=== PATIENT | male | born 1960 | race Caucasian/White ===

== ENCOUNTER 2016-10-26 13:38 | Emergency (ER) | payer OTHER ==
--- NOTE | ~2016-10-26 | CR63 ---
[facility]. [facility] A Service of [facility] RADIOLOGY TEXT RESULTS PATIENT: HEAVEN PAZ LOCATION: SED : 58 UNIT #: [id number] AGE: [address]: Megan Alarcon SEX: M ORDER DR: [id number] [place] [address] [id number] E MR#: [id number] Acc #: [id number] NAME: HEAVEN PAZ. : 1960 SEX: M STUDY DATE/TIME: 10/26/2016 13:59 UNIT: SED ROOM: STUDY DESCRIPTION: CR Chest 2 View Attending Physician: Megan Alarcon P.A.-C. Ordering Physician: Megan Alarcon P.A.-C. Primary Care Physician: Toni Madison M.D. MEDICAL IMAGING REPORT This report is preliminary unless electronic signature is present. EXAM 2 views chest 10/26/2016 HISTORY Cough. Productive cough for 2 days. Prior history of prostate cancer. PA and lateral radiographs of the chest are presented. Comparison 04/05/2016. Loop recorder implanted over left chest unchanged. Status post median sternotomy and aortic valve replacement. Heart borderline enlarged. The lungs are well inflated. There is no evidence of acute infectious or inflammatory disease, pleural effusion or pneumothorax. No suspicious nodule. Dictated by... Van Cox M.D. THIS IS AN ELECTRONICALLY VERIFIED REPORT Van Cox M.D. at 10/27/2016 5:57 PM Kin TD: 10/26/2016 17:57 JOB #: [id number] MEDICAL IMAGING REPORT Page 1 of 1
[~2016-10-26 13:38] MED LIST: ACETAMINOPHEN PO; ADVAIR 2501 DISK W/D PO; ADVAIR 5001 DISK W/D PO; ALBUTEROL 0.5ML INH; ALBUTEROL MININEB INH; ALBUTEROL MININEB NEB; ALBUTEROL/ATROVENT INH; ALBUTEROL0.83 MG/ML IH; ALBUTEROL17 GM INH; ALPRAZOLAM; ALPRAZOLAM PO; AMBIEN PO; ASPIRIN PO; ASPIRINEC PO; BACTROBAN22 GM TP; BENADRYL PO; BENTYL20 M1 PO; BENZONATATE PO; CARAFATE PO; CELEXA20 MG PO; CIPRO PO; CLARITIN10 M3 PO; CLEOCIN PO; COLACE PO; COMBIVENT INH14.7 GM INH; COMBIVENT U/D3 M1 INH; COUMADIN; COUMADIN PO; COUMADIN10 MG PO; COUMADIN7.5 MG PO; DESYREL50 MG PO; DILAUDID PO; DOCU SOFT100 M1 PO; DOXYCYCLINE PO; DULCOLAX10 MG/SUPP RC; FAMOTIDINE; FAMOTIDINE PO; FLAGYL PO; FLEXERIL PO; FLEXERIL10 MG PO; FLONASE16 GM; HUMIBID-LA600 MG PO; HYDROCHLOROTH12.5 MG PO; HYDROCODON-ACE1 EAC7 PO; HYDROCODON-ACE1 EAC9 PO; HYDROCODONE-APA1 T56 PO; IBUPROFEN PO; INDOCIN SR75 MG PO; IPRATROPIUM0.2 MG/ML NEB; K-DUR20 ME1 PO; KCL; KCL PO; KLOR-CON; LEVAQUIN PO; LISINOPRIL; LISINOPRIL PO; LISINOPRIL10 MG PO; LISINOPRIL5 MG PO; LOC PO; LORTAB 10-5001 EACH PO; LORTAB 10/500 T1 TAB PO; LORTAB 5-325 M1 EACH PO; LORTAB 7.5-5001 TAB; LORTAB 7.5-5001 TAB PO; LOVENOX SUBQ; LOVENOX100 MG/ML INJ; LYRICA75 MG PO; MACROBID100 MG PO; MEDROL DOSEPAK4 MG PO; MEDROL PO; MEDROL4 MG/DOSE- PO; MEPHYTON5 M1 PO; METAMUCIL0.52 G; MICRO-K PO; MILK OF MAGNESIA PO; MIRALAX PO; MIRALAX17 G1 PO; MIRALAX17 GM PO; MIRALAX255 GM PO; MONDOXYNE NL100 MG PO; MOTRIN600 M1 PO; MYLANTA GAS80 M1 PO; NABUMETONE PO; NEURONTIN PO; NEURONTIN300 MG PO; NICOTINE TRANSD21 MG TD; NITROGYLCERIN SL; NITROGYLCERIN SUBLINGUAL; NO MEDICATIONS; PATIENT'S PHARMACY; PERCOCET 5-3251 TAB PO; PERCOCET 7.5/321 TAB PO; PHENERGAN PO; PHENERGAN25 MG PO; PREDNISONE PO; PREDNISONE10 MG PO; PRINIVIL40 MG PO; PROTONIX PO; PULMICORT NEB; REGLAN PO; SIMVASTATIN40 MG PO; SINGULAIR PO; SKELAXIN PO; SPIRIVA18 MCG INH; SYMBICORT INH; THIAMINE HCL100 MG PO; TYLOX 5/500 CAP1 CAP PO; ULTRAM PO; VIBRAMYCIN100 M1 PO; VICODIN 5/1 TAB 5/50 PO; VICODIN 5/500 T1 TAB PO; VICODIN PO; XANAX0.5 M1 PO; ZESTRIL40 MG PO; ZITHROMAX PO; ZOCOR PO; ZOCOR20 MG PO; ZOLPIDEM TARTRAT5 MG PO; ZYVOX PO
== END 2016-10-26 15:22 | disposition home or self-care (01) ==
LOC: SED 13:38
DX: J20.9 Acute bronchitis, unspecified (principal); I10 Essential (primary) hypertension; J18.9 Pneumonia, unspecified organism; K57.92 Diverticulitis of intestine, part unspecified, without perforation or abscess without bleeding; Z86.73 Personal history of transient ischemic attack (TIA), and cerebral infarction without residual deficits; F17.200 Nicotine dependence, unspecified, uncomplicated
CPT/HCPCS: 71020; 94640; 99284

== ENCOUNTER 2016-12-22 02:30 | Emergency (ER) | payer OTHER ==
[~2016-12-22] VITALS: Ht 175.3 cm; Wt 85.7 kg
[2016-12-22] MEDS ORDERED: VICODIN ES 7.51 EAC1 PO (02:40)
== END 2016-12-22 03:24 | disposition home or self-care (01) ==
LOC: SED 02:30
DX: S05.01XA Injury of conjunctiva and corneal abrasion without foreign body, right eye, initial encounter (principal); J44.9 Chronic obstructive pulmonary disease, unspecified; F41.9 Anxiety disorder, unspecified; F17.200 Nicotine dependence, unspecified, uncomplicated; Z88.8 Allergy status to other drugs, medicaments and biological substances; Z79.899 Other long term (current) drug therapy; X58.XXXA Exposure to other specified factors, initial encounter
CPT/HCPCS: 99283

== ENCOUNTER 2017-01-08 11:56 | Inpatient (IN) | payer OTHER ==
[~2017-01-08] VITALS: Ht 175.3 cm; Wt 91.8 kg
--- NOTE | ~2017-01-08 | US37 ---
[facility] A Service of [facility] RADIOLOGY TEXT RESULTS PATIENT: HEAVEN PAZ LOCATION: [facility] 322- : 58 UNIT #: [id number] AGE: [address]: Bernie Garcia MD SEX: M ORDER DR: [id number] [facility] [address] [place], [place] [address] [id number] I MR#: [id number] Acc #: [id number] NAME: HEAVEN PAZ. : 1960 SEX: M STUDY DATE/TIME: 01/09/2017 14:10 UNIT: [address] ROOM: [facility] STUDY DESCRIPTION: US Carotid W/Doppler Bilateral Attending Physician: Bernie Garcia M.D. Ordering Physician: Bernie Garcia M.D. Primary Care Physician: Toni Madison M.D. MEDICAL IMAGING REPORT This report is preliminary unless electronic signature is present EXAM Carotid Doppler ultrasound HISTORY Fainting. Stroke. Patient fell 2 days ago. FINDINGS The carotid bifurcations and vertebral arteries were evaluated with banks-scale imaging, color flow Doppler and waveform analysis. NASCET criteria was utilized. There is minimal plaque in the bulb regions bilaterally. Peak systolic flow in the right CCA is 0.98 m/sec, right ICA it is 0.87 m/sec. Peak systolic flow in the left CCA is 0.93 m/sec, left ICA it is 0.84 m/sec. Both vertebral arteries have antegrade flow. IMPRESSION No evidence of significant carotid stenosis. Normal vertebral artery flow. Dictated by... Mahamed Fernando M.D. THIS IS AN ELECTRONICALLY VERIFIED REPORT Mahamed Fernando M.D. at 01/10/2017 6:04 AM ROEL/keyla TD: 01/10/2017 00:20 JOB #: [id number] MEDICAL IMAGING REPORT Page 1 of 1 COPY
--- NOTE | ~2017-01-08 | DS ---
Unit #: [id number] #: [id number] Patient: JOSÉ LOVE [id number] [address] [address] [id number] I MR#: [id number] NAME: JOSÉ LOVE. ROOM: 322 Age: 56 Sex: M Admission Date: 01/08/2017 : 1960 Discharge Date: 01/12/2017 Attending Physician: Bernie Garcia M.D. Primary Care Physician: Toni Madison M.D. DISCHARGE SUMMARY FINAL DIAGNOSES 1. Lower gastrointestinal bleed. 2. Status post colonoscopy, which showed prep was poor. No acute active bleeding. Diverticulosis is present. Large internal hemorrhoid is present. 3. Mechanical aortic valve on heparin in the hospital. 4. Chronic obstructive pulmonary disease. 5. Cerebrovascular accident. 6. Peripheral vascular disease. 7. Seizures. 8. Chronic pain. DISCHARGE MEDICATIONS 1. Lovenox 80 mg subcu b.i.d. 2. Protonix 40 mg b.i.d. 3. Potassium 20 mEq daily. 4. Vitamin D. Continue home dose. 5. Fenofibrate 145 mg daily. 6. Diovan 320 mg daily. 7. Allopurinol 100 mg daily. 8. Singulair 10 mg daily. 9. Aspirin 325 mg daily. 10. Lorcet. Continue home dose. 11. Magnesium oxide 800 mg daily. 12. Coumadin 7.5 mg daily. 13. Wellbutrin 150 mg daily. 14. Atorvastatin 80 mg at bedtime. Please note Norvasc was discontinued in the hospital because of hypotension. That may need to be resumed. CONSULTATION DURING HOSPITALIZATION Dr. Salazar from [facility]. PROCEDURE PERFORMED DURING HOSPITALIZATION Colonoscopy. Results are as above. LAB WORKUP ON DISCHARGE PT and INR are 11.4 and 1.1. CBC shows WBC 9.9, hemoglobin 12.2, hematocrit 35.4 and platelet count of 254. Sodium 139, potassium 4.4, chloride 107, BUN 8, creatinine 0.8. Liver enzymes are stable. Blood cultures were negative. BNP 35 on admission. SIGNIFICANT IMAGING STUDIES DONE IN THE HOSPITAL Unit #: [id number] #: [id number] Patient: JOSÉ LOVE 1. CT scan of the soft tissue of the neck because the patient complained of pain which was normal. 2. CT scan of the abdomen and pelvis, which was normal. There was hepatomegaly. 3. Ultrasound of carotid arteries. No significant stenosis. 4. Knee x-ray showed no acute bone finding. 5. Left ankle x-ray which showed no acute fracture. HOSPITAL COURSE Mr. José Love is a 56-year-old male who was admitted to the hospital with rectal bleeding. Dr. Salazar was consulted. The patient was taken off Coumadin and had a colonoscopy done. Findings are as above. Most likely, this bleeding was secondary to internal hemorrhoids. The patient is being restarted on anticoagulation therapy. The patient will be discharged home on Lovenox 80 mg subcu b.i.d. with Coumadin. The patient will receive Coumadin 10 mg today. The patient will get PT and INR done at Dr. Fatima's office. The patient had a fall before coming to hospital. He complained of neck pain and left lower extremity pain. X-rays were done which were stable. The patient's pain has improved. DISCHARGE INSTRUCTIONS 1. The patient is being discharged home in stable condition. 2. Discontinue Lovenox once INR is more than 2.5. 3. Coumadin 10 mg will be given today. PT and INR in the a.m. in Dr. Callahan's office. 4. Follow up with primary care provider in one week. Dictated by... Joana Sierra TD: 01/13/2017 11:31 JOB #: [id number] DISCHARGE SUMMARY Page 1 of 1 X Bernie Garcia MD X DISCHARGE SUMMARY
--- NOTE | ~2017-01-08 | CT2 ---
[facility] A Service of [facility] RADIOLOGY TEXT RESULTS PATIENT: HEAVEN PAZ LOCATION: [facility] 322-01 : 58 UNIT #: [id number] AGE: [address]: Bernie Garcia MD SEX: M ORDER DR: [id number] [facility] [address] [place], [place] [address] [id number] E MR#: [id number] Acc #: [id number] NAME: HEAVEN PAZ. : 1960 SEX: M STUDY DATE/TIME: 01/08/2017 14:13 UNIT: [place] ROOM: STUDY DESCRIPTION: CT Abd and Pelv W Cont Attending Physician: Megan Freeman M.D. Ordering Physician: Megan Freeman M.D. Primary Care Physician: Toni Madison M.D. MEDICAL IMAGING REPORT This report is preliminary unless electronic signature is present EXAM CT abdomen and pelvis with contrast INDICATIONS Bloody stools. Left lower quadrant abdominal pain for the past 3 days. PROCEDURE Contrast-enhanced CT of the abdomen and pelvis. This CT exam was performed with one or more of the following radiation dose reduction techniques: Automatic exposure control, adjustment of mA and/or kV according to patient size, and iterative reconstruction. COMPARISON 10/09/2014 FINDINGS Included lung bases are clear. Liver enlarged measuring 21.9 cm. The spleen, adrenal glands, pancreas are unremarkable. Previous cholecystectomy. 1.7-cm cyst in the right kidney. Small nonobstructing calculi in the right kidney. Bowel loops are nondilated. There is postsurgical change in the sigmoid colon. PELVIS WITHOUT CONTRAST: Prostate measures 5.2 cm. No pelvic mass or fluid. No aggressive appearing bone lesion. IMPRESSION 1. No clearly acute finding. 2. Hepatomegaly. Right renal cyst and small nonobstructing right renal calculi. 3. Prostatomegaly. [facility] A Service of [facility] RADIOLOGY TEXT RESULTS PATIENT: HEAVEN PAZ LOCATION: [facility] 322- : 58 UNIT #: [id number] AGE: [address]: Bernie Garcia MD SEX: M ORDER DR: Dictated by... Dimitri Jay M.D. THIS IS AN ELECTRONICALLY VERIFIED REPORT Dimitri Jay M.D. at 01/09/2017 8:17 AM EED/psc TD: 01/08/2017 16:20 JOB #: [id number] MEDICAL IMAGING REPORT Page 1 of 1 COPY
--- NOTE | ~2017-01-08 | CT114 ---
[facility] A Service of [facility] RADIOLOGY TEXT RESULTS PATIENT: HEAVEN PAZ LOCATION: A 322-01 : 58 UNIT #: [id number] AGE: [address]: Bernie Garcia MD SEX: M ORDER DR: [id number] [facility] [address] [place] [address] [place], [place] [address] [id number] E MR#: [id number] Acc #: [id number] NAME: HEAVEN PAZ. : 1960 SEX: M STUDY DATE/TIME: 01/08/2017 14:13 UNIT: [facility] ROOM: STUDY DESCRIPTION: CT Soft Tissue Neck W Cont Attending Physician: Megan Freeman M.D. Ordering Physician: Megan Freeman M.D. Primary Care Physician: Toni Madison M.D. MEDICAL IMAGING REPORT This report is preliminary unless electronic signature is present EXAM CT neck with contrast HISTORY Left-sided neck pain and swelling for 3 days. History of COPD. Prostate cancer 2016. FINDINGS Axial images performed through the neck following IV contrast. This CT exam was performed with one or more of the following radiation dose reduction techniques: Automatic exposure control, adjustment of mA and/or kV according to patient size, and iterative reconstruction. Multiplanar reconstructions. Scanning was performed from the skull base to the arsen. The parotid, submandibular and thyroid glands are unremarkable. There are a few benign-appearing anterior cervical lymph nodes. Anatomic spaces within the head and neck appear normal. Skull base unremarkable. Minimal atherosclerotic changes seen within the carotids bilaterally. There is C5-6 degenerative disc disease with a posterior disc protrusion and osteophyte with a left paracentral predominance. This contributes to mild spinal stenosis and moderate lateral recess stenosis. Upper thorax remarkable for emphysema. Patient is also post median sternotomy. Patient does demonstrate a large left susan bullosa. The patient does demonstrate a small left submandibular lymph node that does not appear pathologically enlarged. IMPRESSION No acute head/neck pathology. Correlate with physical findings. Dictated by... [facility] A Service of [facility] RADIOLOGY TEXT RESULTS PATIENT: HEAVEN PAZ LOCATION: [facility] 322-01 : 58 UNIT #: [id number] AGE: [address]: Bernie Garcia MD SEX: M ORDER DR: Alvin Morris M.D. THIS IS AN ELECTRONICALLY VERIFIED REPORT Alvin Morris M.D. at 01/08/2017 10:02 PM EDGAR/nando TD: 01/08/2017 16:15 JOB #: [id number] MEDICAL IMAGING REPORT Page 1 of 1 COPY
--- NOTE | ~2017-01-08 | OR ---
Unit #: [id number] #: [id number] Patient: HEAVEN PAZ [id number] [address] [address] [id number] I MR#: [id number] NAME: HEAVEN PAZ. ROOM: [facility] Date of Procedure: 01/11/2017 Admission Date: 01/08/2017 Surgeon: Austin Salazar M.D. : 1960 Attending Physician: Bernie Garcia M.D. Primary Care Physician: Toni Madison M.D. OPERATIVE REPORT JOB NOTE: CC: PRIMARY CARE PHYSICIAN PROCEDURE PERFORMED Colonoscopy to cecum. INDICATIONS FOR PROCEDURE The patient with significant lower GI bleeding, anemia secondary of blood loss. MEDICATIONS Monitored anesthesia. POSTOPERATIVE FINDINGS 1. Colonoscopy completed to cecum. Prep was poor. No active bleeding or any stigmata of recent bleeding was seen in the entire colon. 2. Anastomosis in the sigmoid colon was intact. 3. Large internal hemorrhoids, most likely the cause of bleeding. PLAN High fiber diet. Stool softeners. Watch for any continued bleeding. DESCRIPTION OF PROCEDURE The patient was explained of the procedure, risks, and benefits along with risks and benefits of anesthesia. She was brought to the endoscopy room. Propofol anesthesia was given. Rectal exam was done, which was normal. Colonoscope was lubricated, passed up the rectum, advanced under direct vision all the way to the cecum. Cecum was identified by ileocecal valve and appendiceal orifice. Poor prep lead to suboptimal exam, polyp could have been missed. I retroflexed in the rectum, internal hemorrhoids noted. Gently, the scope was pulled out. She tolerated it well. Dictated by... Joana Ash/alberta TD: 01/11/2017 16:25 JOB #: [id number] Unit #: [id number] #: [id number] Patient: HEAVEN PAZ OPERATIVE REPORT Page 1 of 1 X Austin Salazar MD PROCEDURE OPERATIVE NOTE
--- NOTE | ~2017-01-08 | CR169 ---
[facility] A Service [facility] RADIOLOGY TEXT RESULTS PATIENT: HEAVEN PAZ LOCATION: [facility] 322 : 58 UNIT #: [id number] AGE: [address]: Bernie Garcia MD SEX: M ORDER DR: [id number] [address] [address] [id number] E MR#: [id number] Acc #: [id number] NAME: HEAVEN PAZ. : 1960 SEX: M STUDY DATE/TIME: 01/08/2017 12:37 UNIT: [place] ROOM: STUDY DESCRIPTION: CR Knee 2 Views Lt Attending Physician: Megan Freeman M.D. Ordering Physician: Megan Freeman M.D. Primary Care Physician: Toni Madison M.D. MEDICAL IMAGING REPORT This report is preliminary unless electronic signature is present EXAM Left knee series INDICATION Left knee pain after a fall today. PROCEDURE Two views left knee COMPARISON None. FINDINGS No acute fracture or dislocation. There is a trace joint effusion. There is a small curvilinear radiodense foreign body projecting in the soft tissues along the anteromedial distal left thigh. IMPRESSION 1. No acute bone findings. 2. Trace joint effusion. 3. Small curvilinear radiodense foreign body soft tissues in the anteromedial distal left thigh. Dictated by... Dimitri Jay M.D. THIS IS AN ELECTRONICALLY VERIFIED REPORT Dimitri Jay M.D. at 01/09/2017 8:15 AM ANTHONY/tanner TD: 01/08/2017 13:50 [facility] A Service [facility] RADIOLOGY TEXT RESULTS PATIENT: HEAVEN PAZ LOCATION: [facility] 322-01 : 58 UNIT #: [id number] AGE: [address]: Bernie Garcia MD SEX: M ORDER DR: JOB #: [id number] MEDICAL IMAGING REPORT Page 1 of 1 COPY
--- NOTE | ~2017-01-08 | EKG ---
PATIENT: HEAVEN PAZ UNIT #: [id number] Ventricular Rate: 78 BPM Atrial Rate: 78 BPM P-R Interval: 162 ms QRS Duration: 146 ms Q-T Interval: 432 ms QTC Calculation(Bezet): 492 ms P [place]: 51 degrees Calculated R [place]: -89 degrees Calculated T [place]: 23 degrees Diagnosis Line: Atrial flutter Diagnosis Line: Right bundle branch block Diagnosis Line: Left anterior fascicular block Diagnosis Line: Bifascicular block Diagnosis Line: T wave abnormality, consider lateral ischemia Diagnosis Line: Abnormal ECG Diagnosis Line: When compared with ECG of 20-MAY-2015 17:52, Diagnosis Line: T wave inversion more evident in Anterolateral Diagnosis Line: leads Diagnosis Line: Atrial flutter is now Present Diagnosis Line: Confirmed by SALINA BURRELL MD ([id number]) on 01/10/2017 Diagnosis Line: 10:51:58 PM INTERPRETING MD: INDRA ADAMS
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
--- NOTE | ~2017-01-08 | CR20 ---
[facility] A Service of [facility] RADIOLOGY TEXT RESULTS PATIENT: HEAVEN APZ LOCATION: [facility] 322-01 : 58 UNIT #: [id number] AGE: [address]: Bernie Garcia MD SEX: M ORDER DR: [id number] [facility] [address] [facility]. [place], [place] [address] [id number] E MR#: [id number] Acc #: [id number] NAME: HEAVEN PAZ. : 1960 SEX: M STUDY DATE/TIME: 01/08/2017 12:35 UNIT: [place] ROOM: STUDY DESCRIPTION: CR Ankle Min 3 Views Lt Attending Physician: Megan Freeman M.D. Ordering Physician: Megan Freeman M.D. Primary Care Physician: Toni Madison M.D. MEDICAL IMAGING REPORT This report is preliminary unless electronic signature is present EXAM Left ankle series INDICATION Left knee and ankle pain after a fall today. PROCEDURE Three views left ankle. COMPARISON None. FINDINGS No acute fracture. No dislocation. IMPRESSION No acute findings. Dictated by... Dimitri Jay M.D. THIS IS AN ELECTRONICALLY VERIFIED REPORT Dimitri Jay M.D. at 01/09/2017 8:15 AM ANTHONY/tanner TD: 01/08/2017 13:49 JOB #: [id number] MEDICAL IMAGING REPORT Page 1 of 1 COPY
[~2017-01-08 11:56] MED LIST changes: +VICODIN ES 7.51 EAC1 PO
[2017-01-08 12:45] LABS: BASOPHIL# 0.1 X10e3 (0-0.3); BASOPHIL% 0.9 % (0-2.5); DIFF IND NO; EOSINOPHIL# 0.2 X10e3 (0-0.7); EOSINOPHIL% 2.9 % (0.0-7.0); HEMATOCRIT 38.1 % (38.0-50.0); HEMOGLOBIN 13.2 gm/dL (13.0-16.0); LYMPHOCYTE# 1.7 X10e3 (1.0-3.5); LYMPHOCYTE% 21.8 % (17.0-45.0); MEAN CORPUSCULAR HEMOGLOBIN 31.2 PG (28-34); MEAN CORPUSCULAR HGB CONC 34.6 g/dL (30-36); MEAN PLATELET VOLUME 7.9 FL (6.5-11.5); MONOCYTE# 0.6 X10e3 (0-1.0); MONOCYTE% 8.3 % (3.0-12.0); NEUTROPHIL# 5.1 X10e3 (1.5-7.1); NEUTROPHIL% 66.1 % (40-75); PLATELET COUNT 274 X10e3 (140-420); RED BLOOD COUNT 4.23 X10e (3.90-5.60); RED CELL DISTRIBUTION WIDTH 14.5 % (11.0-15.5); WHITE BLOOD COUNT 7.6 X10e3 (4.0-10.5)
[2017-01-08 12:56] LABS: PARTIAL THROMBOPLASTIN TIME 41.4 SECONDS (23.5-31.3); PROTHROMBIN TIME (PATIENT) 33.1 SECONDS (10.0-11.7)
[2017-01-08 13:39] LABS: ALBUMIN SERUM 3.6 g/dL (3.5-5.0); BILIRUBIN,TOTAL 0.5 mg/dL (0.2-2.0); BUN/CREATININE RATIO 11.11; CALCIUM SERUM 8.7 mg/dL (8.4-10.2); CREATININE SERUM 0.9 mg/dL (0.6-1.4); GLOM FILT RATE Estimated 94.5 mL/min (>60)
[2017-01-08 13:40] LABS: BILIRUBIN,INDIRECT 0.5 mg/dL (0.0-0.9)
[2017-01-08 15:06] LABS: POC - CKMB 1.9 ng/mL (0.0-7.9); POC - TROPONIN <0.05 ng/mL (<=0.05)
[2017-01-08] MEDS ORDERED: ZYLOPRIM100 MG PO (15:10)
[2017-01-08] MEDS ORDERED: WELLBUTRIN SR150 M1 PO (15:11)
[2017-01-08] MEDS ORDERED: ASPIRIN ENTERI325 M1 PO (15:11)
[2017-01-08] MEDS ORDERED: ATORVASTATIN CA80 MG PO (15:11)
[2017-01-08] MEDS ORDERED: AMLODIPINE BESY10 MG PO (15:11)
[2017-01-08] MEDS ORDERED: ZYRTEC10 M2 PO (15:12)
[2017-01-08] MEDS ORDERED: LORCET PLUS 7.1 EACH PO (15:13)
[2017-01-08] MEDS ORDERED: FENOFIBRATE145 M1 PO (15:13)
[2017-01-08] MEDS ORDERED: PROTONIX PO (15:14)
[2017-01-08] MEDS ORDERED: SINGULAIR PO (15:14)
[2017-01-08] MEDS ORDERED: DIOVAN320 MG PO (15:14)
[2017-01-08] MEDS ORDERED: K-DUR20 ME1 PO (15:14)
[2017-01-08] MEDS ORDERED: MAG-OX 400400 M1 PO (15:14)
[2017-01-08] MEDS ORDERED: WARFARIN SODIU7.5 M1 PO (15:15)
[2017-01-08] MEDS ORDERED: VITAMIN D250000 UNIT PO (15:15)
[2017-01-09 05:16] LABS: BASOPHIL# 0.1 X10e3 (0-0.3); EOSINOPHIL# 0.3 X10e3 (0-0.7); EOSINOPHIL% 3.7 % (0.0-7.0); HEMATOCRIT 36.2 % (38.0-50.0); HEMOGLOBIN 12.5 gm/dL (13.0-16.0); LYMPHOCYTE# 2.7 X10e3 (1.0-3.5); LYMPHOCYTE% 32.9 % (17.0-45.0); MEAN CORPUSCULAR HEMOGLOBIN 31.5 PG (28-34); MEAN CORPUSCULAR HGB CONC 34.6 g/dL (30-36); MONOCYTE# 0.6 X10e3 (0-1.0); MONOCYTE% 7.9 % (3.0-12.0); NEUTROPHIL# 4.5 X10e3 (1.5-7.1); NEUTROPHIL% 54.5 % (40-75); PLATELET COUNT 225 X10e3 (140-420); RED BLOOD COUNT 3.98 X10e (3.90-5.60); RED CELL DISTRIBUTION WIDTH 14.8 % (11.0-15.5); WHITE BLOOD COUNT 8.2 X10e3 (4.0-10.5)
[2017-01-09 05:32] LABS: DIFF IND NO
[2017-01-09 05:43] LABS: INR 3.3; PROTHROMBIN TIME (PATIENT) 36.1 SECONDS (10.0-11.7)
[2017-01-10 05:36] LABS: HEMATOCRIT 34.3 % (38.0-50.0); HEMOGLOBIN 11.5 gm/dL (13.0-16.0); MEAN CELL VOLUME 90.5 FL (83-96); MEAN CORPUSCULAR HEMOGLOBIN 30.4 PG (28-34); MEAN CORPUSCULAR HGB CONC 33.5 g/dL (30-36); MEAN PLATELET VOLUME 7.4 FL (6.5-11.5); RED BLOOD COUNT 3.79 X10e (3.90-5.60); RED CELL DISTRIBUTION WIDTH 14.5 % (11.0-15.5); WHITE BLOOD COUNT 11.3 X10e3 (4.0-10.5)
[2017-01-10 06:20] LABS: ALBUMIN SERUM 3.5 g/dL (3.5-5.0); BILIRUBIN,TOTAL 1.1 mg/dL (0.2-2.0); BUN/CREATININE RATIO 8.18; CALCIUM SERUM 8.6 mg/dL (8.4-10.2); CREATININE SERUM 1.1 mg/dL (0.6-1.4); GLOM FILT RATE Estimated 74.1 mL/min (>60); POTASSIUM 4.2 mmol/L (3.5-5.1)
[2017-01-10 07:09] LABS: INR 1.3
[2017-01-11 02:03] LABS: HEMOGLOBIN 11.2 gm/dL (13.0-16.0); MEAN CELL VOLUME 90.9 FL (83-96); MEAN CORPUSCULAR HEMOGLOBIN 30.7 PG (28-34); MEAN CORPUSCULAR HGB CONC 33.8 g/dL (30-36); MEAN PLATELET VOLUME 7.5 FL (6.5-11.5); RED BLOOD COUNT 3.63 X10e (3.90-5.60); RED CELL DISTRIBUTION WIDTH 14.6 % (11.0-15.5); WHITE BLOOD COUNT 8.8 X10e3 (4.0-10.5)
[2017-01-11 02:17] LABS: INR 1.2; PARTIAL THROMBOPLASTIN TIME 34.8 SECONDS (23.5-31.3); PROTHROMBIN TIME (PATIENT) 12.6 SECONDS (10.0-11.7)
[2017-01-11 02:26] LABS: ALBUMIN SERUM 3.5 g/dL (3.5-5.0); BILIRUBIN,TOTAL 0.9 mg/dL (0.2-2.0); CALCIUM SERUM 8.6 mg/dL (8.4-10.2); CREATININE SERUM 0.8 mg/dL (0.6-1.4); GLOM FILT RATE Estimated 99.2 mL/min (>60); POTASSIUM 4.4 mmol/L (3.5-5.1); PROTEIN TOTAL SERUM 5.9 g/dL (6.0-8.3)
[2017-01-11 17:36] LABS: HEMATOCRIT 35.4 % (38.0-50.0); HEMOGLOBIN 12.2 gm/dL (13.0-16.0); MEAN CELL VOLUME 90.5 FL (83-96); MEAN CORPUSCULAR HEMOGLOBIN 31.1 PG (28-34); MEAN CORPUSCULAR HGB CONC 34.3 g/dL (30-36); MEAN PLATELET VOLUME 7.7 FL (6.5-11.5); RED BLOOD COUNT 3.91 X10e (3.90-5.60); RED CELL DISTRIBUTION WIDTH 14.6 % (11.0-15.5); WHITE BLOOD COUNT 9.9 X10e3 (4.0-10.5)
[2017-01-11 17:49] LABS: INR 1.1; PARTIAL THROMBOPLASTIN TIME 26.4 SECONDS (23.5-31.3); PROTHROMBIN TIME (PATIENT) 11.4 SECONDS (10.0-11.7)
[2017-01-12] MEDS ORDERED: LOVENOX80 MG/0.8 INJ (11:23)
[2017-01-12] MEDS ORDERED: MIRALAX17 GM PO (12:39)
[2017-01-12 14:59] LABS: PROTHROMBIN TIME (PATIENT) 10.9 SECONDS (10.0-11.7)
== END 2017-01-12 15:46 | disposition home health service (06) | DRG 394 ==
LOC: CED 11:56 → CEDOF 15:16 → C3A PCU 15:16 → CED 17:05 → CEDOF 17:05 → C3A PCU 17:54 → CEDOF 17:54 → C3A PCU 01-12 15:46
PROVIDERS: Internal Medicine; Physician Assistant Medical; Student in an Organized Health Care Education/Training Program
PROC: 0DJD8ZZ Inspection of Lower Intestinal Tract, Via Natural or Artificial Opening Endoscopic (ICD-10-PCS; principal; 2017-01-11 15:04)
DX: K64.8 Other hemorrhoids (principal); D62 Acute posthemorrhagic anemia; I10 Essential (primary) hypertension; Z95.2 Presence of prosthetic heart valve; Z79.01 Long term (current) use of anticoagulants; G40.909 Epilepsy, unspecified, not intractable, without status epilepticus; J44.9 Chronic obstructive pulmonary disease, unspecified; E78.5 Hyperlipidemia, unspecified; F17.210 Nicotine dependence, cigarettes, uncomplicated; Z79.82 Long term (current) use of aspirin; Z86.73 Personal history of transient ischemic attack (TIA), and cerebral infarction without residual deficits; I73.9 Peripheral vascular disease, unspecified; G89.29 Other chronic pain; W18.30XA Fall on same level, unspecified, initial encounter
CPT/HCPCS: 36415; 70491; 73560; 73610; 74177; 80048; 80053; 80076; 82553; 83605; 83880; 84484; 85025; 85027; 85610; 85730; 86850; 86900; 86901; 87040; 93005; 93880; 94640; 94760; 96361; 96374; 96375; 96376; 99285; C9113; J0690; J1170; J1580; J1644; J1650; J2250; J2405; J2543; J2550; J3260; J3370; J3430; Q9967

== ENCOUNTER 2017-01-25 22:44 | Inpatient (IN) | payer OTHER ==
[~2017-01-25] VITALS: Ht 175.3 cm; Wt 84.0 kg
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
--- NOTE | ~2017-01-25 | CO ---
Unit #: [id number] #: [id number] Patient: JOSÉ LOVE [id number] [place], [place] [address] [id number] I MR#: [id number] NAME: JOSÉ LOVE ROOM: 314 Age: 56 Sex: M Admission Date: 01/26/2017 : 1960 Attending Physician: Chau Higgins M.D. Primary Care Physician: Toni Madison M.D. CONSULTATION REPORT REASON FOR CONSULTATION Followup. DISCUSSION Mr. José Love is a 56-year-old male, seen on 02/07/2017 in room 314 bed 1 at the [facility]. The patient reported sleeping good, decrease in anxiety, and depression. The patient reports feeling better. The patient's vital signs; temperature 98.6, pulse 62, respirations 16, blood pressure 108/62, and oxygen saturation 100%. The patient denied any thoughts of harming self or others. Denied any psychotic symptom. The patient is currently on Vistaril and Desyrel combination. No side effects from medication. REVIEW OF SYSTEMS Complete review of systems unremarkable. MENTAL STATUS EXAMINATION General appearance; the patient dressed casually. Attention span and concentration fair. Oriented in time, place, and person. Mood and affect; sad and dysphoric. Thought process, coherent. Thought content, the patient denied any thoughts of harming self or others or any hallucination. Recent and remote memory, fair. Language, intact. Fund of knowledge, fair to slightly impaired. DIAGNOSES Psychiatric: Major depressive disorder, recurrent, severe, F33.2; alcohol use disorder, severe, F10.20. ASSESSMENT AND PLAN 1. Supportive psychotherapy and psychoeducation provided to the patient. 2. Educated about benefits and side effects of medication and course and prognosis of illness. 3. Advised to continue with current medication and therapeutic protocol. If needed, consider further adjustment of medication. Dictated by... Joana Eric/alberta TD: 02/07/2017 16:42 JOB #: [id number] Unit #: [id number] #: [id number] Patient: JOSÉ LOVE CONSULTATION REPORT Page 1 of 1 X Luis Perez MD CONSULTATION REPORT
--- NOTE | ~2017-01-25 | CR72 ---
[facility] A Service of [facility] RADIOLOGY TEXT RESULTS PATIENT: HEAVEN PAZ LOCATION: [facility] 553- : [birth year] UNIT #: [id number] AGE: [address]: Chau Higgins MD SEX: M ORDER DR: [id number] [address] [address] [id number] I MR#: [id number] Acc #: [id number] NAME: HEAVEN PAZ. : 1960 SEX: M STUDY DATE/TIME: 01/26/2017 0:44 UNIT: SEDOF ROOM: [facility] STUDY DESCRIPTION: CR Chest Single View Portable Attending Physician: Chau Higgins M.D. Ordering Physician: Duane Shell M.D. Primary Care Physician: Toni Madison M.D. MEDICAL IMAGING REPORT This report is preliminary unless electronic signature is present. EXAM Chest x-ray 01/26/2017 HISTORY 56-year-old male in the ED complaining of fever, abdomen pain, nausea and vomiting beginning earlier today. TECHNIQUE AP portable chest x-ray. FINDINGS No active disease in the chest. Postop changes cardiac surgery including aortic valve replacement. Heart size and pulmonary vascularity are within normal limits given AP portable technique. The lungs appear clear. No visible pulmonary infiltrate or pleural effusion. Cardiac loop recorder in the left chest wall. No change since 10/26/2016. IMPRESSION 1. No active disease. No change since 10/26/2016. 2. Postop changes cardiac surgery including AVR. Dictated by... William Amaro M.D. THIS IS AN ELECTRONICALLY VERIFIED REPORT William Amaro M.D. at 01/26/2017 9:48 PM MIKE/tanner TD: 01/26/2017 07:11 JOB #: [id number] [facility] A Service of [facility] RADIOLOGY TEXT RESULTS PATIENT: HEAVEN PAZ LOCATION: [facility]3-01 : 58 UNIT #: [id number] AGE: [address]: Chau Higgins MD SEX: M ORDER DR: MEDICAL IMAGING REPORT Page 1 of 1
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
--- NOTE | ~2017-01-25 | CR72 ---
[facility]. [facility] A Service of [facility] RADIOLOGY TEXT RESULTS PATIENT: HEAVEN PAZ LOCATION: [facility] 314-01 : 58 UNIT #: [id number] AGE: [address]: Chau Higgins MD SEX: M ORDER DR: [id number] [facility] [address] [place], [place] [address] [id number] I MR#: [id number] Acc #: [id number] NAME: HEAVEN PAZ. : 1960 SEX: M STUDY DATE/TIME: 01/28/2017 7:24 UNIT: [facility] ROOM: [facility] STUDY DESCRIPTION: CR Chest Single View Portable Attending Physician: Chau Higgins M.D. Ordering Physician: Marcelino Vick M.D. Primary Care Physician: Toni Madison M.D. MEDICAL IMAGING REPORT This report is preliminary unless electronic signature is present EXAM Portable chest INDICATIONS Shortness of air since 01/26. History of prostate cancer. Central venous catheter placement. FINDINGS This portable view of the chest shows a new right-sided central venous catheter with its tip in the mid right atrium. There is no pneumothorax. The lungs are clear. Dictated by... Mahamed Fernando M.D. THIS IS AN ELECTRONICALLY VERIFIED REPORT Mahamed Fernando M.D. at 01/30/2017 6:15 AM ROEL/judah TD: 01/29/2017 09:43 JOB #: [id number] MEDICAL IMAGING REPORT Page 1 of 1 COPY
--- NOTE | ~2017-01-25 | CR72 ---
[facility] A Service of [facility] RADIOLOGY TEXT RESULTS PATIENT: HEAVEN PAZ LOCATION: [facility] 314-01 : 58 UNIT #: [id number] AGE: [address]: Chau Higgins MD SEX: M ORDER DR: [id number] [facility] [address] [place], [place] [address] [id number] I MR#: [id number] Acc #: [id number] NAME: HEAVEN PAZ. : 1960 SEX: M STUDY DATE/TIME: 01/30/2017 5:09 UNIT: [address] ROOM: [facility] STUDY DESCRIPTION: CR Chest Single View Portable Attending Physician: Chau Higgins M.D. Ordering Physician: Paco Valle M.D. Primary Care Physician: Toni Madison M.D. MEDICAL IMAGING REPORT This report is preliminary unless electronic signature is present EXAM Portable chest HISTORY Fever, shortness of air for 4 days. FINDINGS Mild cardiac enlargement is similar to yesterday. Stable mild interstitial prominence in both lungs. No focal airspace consolidation or pleural effusion. NG tube has been removed. Right IJ line tip remains in the superior margin of the right atrium. Sternotomy and cardiac valve prosthesis. Dictated by... Miguel Muniz M.D. THIS IS AN ELECTRONICALLY VERIFIED REPORT Miguel Muniz M.D. at 01/30/2017 10:31 PM BRINA/tanner TD: 01/30/2017 12:45 JOB #: [id number] MEDICAL IMAGING REPORT Page 1 of 1 COPY
--- NOTE | ~2017-01-25 | XA75 ---
[facility] A Service of [facility] RADIOLOGY TEXT RESULTS PATIENT: HEAVEN PAZ LOCATION: A 314-01 : 58 UNIT #: [id number] AGE: [address]: Chau Higgins MD SEX: M ORDER DR: [id number] [facility] [address]. [place], [place] [address] [id number] I MR#: [id number] Acc #: [id number] NAME: HEAVEN PAZ. : 1960 SEX: M STUDY DATE/TIME: 01/27/2017 11:33 UNIT: [facility] ROOM: [facility] STUDY DESCRIPTION: XA CVC Non-Tunnel Attending Physician: Chau Higgins M.D. Ordering Physician: Kemi Cardona M.D. Primary Care Physician: Toni Madison M.D. MEDICAL IMAGING REPORT This report is preliminary unless electronic signature is present EXAM Central line insertion, procedure date 01/27/2017 HISTORY Central access needed. PROCEDURE Informed consent was obtained. Full standard sterile technique was utilized including sterile preparation, barrier draping, sterile gowns and gloves as well as caps and masks. Real-time sterile ultrasound guidance was used to guide internal jugular venous access and confirm vessel patency. Fluoroscopic guidance was used to confirm catheter tip position. After local anesthesia using realtime sterile ultrasound guidance right internal jugular vein was accessed, guidewire passed, the tract dilated and a triple lumen central line inserted. It was fixed to the skin with its tip in the upper right atrium. There were no complications. Single ultrasound and fluoroscopic spot image was preserved and a total of 0.1 minutes of fluoroscopic guidance was utilized. IMPRESSION Successful ultrasound and fluoroscopically guided insertion of a right IJ triple-lumen catheter tip in the upper right atrium. Dictated by... Dmitriy Julian M.D. THIS IS AN ELECTRONICALLY VERIFIED REPORT Dmitriy Julian M.D. at 01/30/2017 9:06 AM SENG/prince TD: 01/28/2017 05:18 [facility] A Service of [facility] RADIOLOGY TEXT RESULTS PATIENT: HEAVEN PAZ LOCATION: [facility] 314-01 : 58 UNIT #: [id number] AGE: [address]: Chau Higgins MD SEX: M ORDER DR: JOB #: [id number] MEDICAL IMAGING REPORT Page 1 of 1 COPY
--- NOTE | ~2017-01-25 | A ---
[facility] Nutrition Therapy DATE: 02/07/17 Patient: HEAVEN PAZ Physician: KELSEY Address: [address] [place] [address] DRIVE Room/Bed: [address] [place] [address], Zip: [place] [address] Admit Date: 01/26/17 Date of : [birth year] Height: 5 9 Weight: 185 84 NUTRITIONAL ASSESSMENT: REASON: Length of stay Admitting dx: Pt is a 56 y/o male admitted with abdominal pain/fever and ETOH abuse PMH: COPD, CVA, seizure disorder, dyslipedemia, valvular heart disease, HTN, diverticulosis, tobacco use Anthropometrics: HT: 69" WT: 185# BMI: 27.3 (overweight) Labs: Alb: 2.8 Meds: novoLOG, Protonix, Zofran, Furosemide, Coumadin, Prednisone, Therapeutic formula I/O & Bowel function: BM 02/06 Skin Integrity: Bruising- ABD, BUE Scab- ABD, LT hand, LT elbow Scar- nose, BUE, LLE, ABD, chest Diet: consistent carb Assessment: Chart reviewed, events noted. RD intern brand able to speak with pt at bedside. Reported his weight to be 185# with no recent weight loss/gain. Pt reports having a good appetite and eating 100% of his meals 3x daily. Pt reports no questions at this time. RD to follow up per protocol. Dx: No nutritional dx. Intervention: See recs below Monitoring, Evaluation and Goals: 1. Oral intake >75% of meals. 2. Maintain current weight status/prevent unintentional weight loss. 3. Promote regular BM's. Recommendations: 1. Continue pt on CC diet. 2. Consider obtaining updated lipid panel. RD to follow. [facility] Nutrition Therapy DATE: 02/07/17 Patient: HEAVEN AUGUSTINULL Physician: KELSEY Address: [address] [place] [address] DRIVE Room/Bed: [address] [place] [address], Zip: [place] [address] Admit Date: 01/26/17 Date of : [birth year] Height: 5 9 Weight: 185 84 Pt is at no nutritional risk. Respectfully, Teresita Ferguson, ZACHARY, SAMMY Cooper, [employer] [facility] cc: client file
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
--- NOTE | ~2017-01-25 | CR72 ---
[facility] A Service of [facility] RADIOLOGY TEXT RESULTS PATIENT: HEAVEN PAZ LOCATION: [facility] 314-01 : [birth year] UNIT #: [id number] AGE: [address]: Chau Higgins MD SEX: M ORDER DR: [id number] [facility] [address]. [place], [place] [address] [id number] I MR#: [id number] Acc #: [id number] NAME: HEAVEN PAZ : 1960 SEX: M STUDY DATE/TIME: 02/02/2017 [facility] STUDY DESCRIPTION: CR Chest Single View Portable Attending Physician: Chau Higgins M.D. Ordering Physician: Willie Not Listed Primary Care Physician: Toni Madison M.D. MEDICAL IMAGING REPORT This report is preliminary unless electronic signature is present EXAM Chest portable 02/02/2017 1049 hours. HISTORY 56-year-old man with shortness of air, fever, nausea and vomiting beginning 01/26/2017. History of hypertension and prostate cancer. COMPARISON 01/30/2017 FINDINGS Portable upright chest demonstrates median sternotomy change with valve ring present. There is stable cardiomegaly, tortuous aorta and right central venous catheter. The lungs are well expanded with mild interstitial prominence which is unchanged. There is no airspace density or effusion. IMPRESSION Stable postop cardiomegaly. Stable bilateral interstitial prominence in the lungs. No airspace consolidation or pleural effusion. Dictated by... Smiley Tai M.D. THIS IS AN ELECTRONICALLY VERIFIED REPORT Smiley Tai M.D. at 02/02/2017 12:52 PM WERNER/alberto TD: 02/02/2017 12:37 JOB #: [id number] [facility] A Service of [facility] RADIOLOGY TEXT RESULTS PATIENT: HEAVEN PAZ LOCATION: [facility] 314-01 : [birth year] UNIT #: [id number] AGE: [address]: Chau Higgins MD SEX: M ORDER DR: MEDICAL IMAGING REPORT Page 1 of 1 COPY
--- NOTE | ~2017-01-25 | EKG ---
PATIENT: HEAVEN PAZ UNIT #: [id number] Ventricular Rate: 90 BPM Atrial Rate: 90 BPM P-R Interval: 168 ms QRS Duration: 152 ms Q-T Interval: 396 ms QTC Calculation(Bezet): 484 ms P Oto: 58 degrees Calculated R Oto: -75 degrees Calculated T Oto: 48 degrees Diagnosis Line: Normal sinus rhythm Diagnosis Line: Right bundle branch block Diagnosis Line: Left anterior fascicular block Diagnosis Line: Bifascicular block Diagnosis Line: Abnormal ECG Diagnosis Line: When compared with ECG of 08-JAN-2017 12:25, Diagnosis Line: Sinus rhythm has replaced Atrial flutter Diagnosis Line: T wave inversion no longer evident in Lateral Diagnosis Line: leads Diagnosis Line: Confirmed by DAMIR MORRISSEY MD ([id number]) on Diagnosis Line: 01/27/2017 8:04:05 AM INTERPRETING MD: GHANSHYAM ADAMS
--- NOTE | ~2017-01-25 | CT16 ---
[facility] A Service of [facility] RADIOLOGY TEXT RESULTS PATIENT: HEAVEN PAZ LOCATION: [facility] 314-01 : [birth year] UNIT #: [id number] AGE: [address]: Chau Higgins MD SEX: M ORDER DR: [id number] [facility] [address] [place], [place] [address] [id number] I MR#: [id number] Acc #: [id number] NAME: HEAVEN PAZ. : 1960 SEX: M STUDY DATE/TIME: 01/29/2017 16:22 [facility] STUDY DESCRIPTION: CT Angio Chest for PE Attending Physician: Chau Higgins M.D. Ordering Physician: Paco Valle M.D. Primary Care Physician: Toni Madison M.D. MEDICAL IMAGING REPORT This report is preliminary unless electronic signature is present EXAM CTA chest with contrast 01/29/2017 HISTORY 56-year-old male with shortness of air beginning today. COPD. COMPARISON CT chest 01/14/2006 TECHNIQUE Helical scan performed through the chest following the timed bolus administration of IV contrast per PE protocol. Coronal 3-D MIP reconstructions. Sagittal reformatted images. This CT exam was performed with one or more of the following radiation dose reduction techniques: Automatic exposure control, adjustment of mA and/or kV according to patient size, and iterative reconstruction. FINDINGS There is adequate opacification of the pulmonary arteries with no filling defects demonstrated. Thoracic aorta normal in course and caliber without dissection. There is mild prominence of the main pulmonary artery, which may suggest underlying pulmonary arterial hypertension. Mild cardiomegaly is unchanged. There are multiple prominent mediastinal lymph nodes, which are nonspecific, but similar in appearance to prior study from 2005. These are likely reactive. Small bilateral pleural effusions with bibasilar atelectasis/infiltrate. Hazy ground-glass opacities noted throughout both lungs with interlobular septal thickening suggesting pulmonary edema and congestive failure in the appropriate clinical setting. Emphysema. No pneumothorax. There is some minimal patchy infiltrates in the left upper and left lower lobes. Superimposed pneumonia is not excluded. [facility]. [facility] A Service of [facility] & [facility] RADIOLOGY TEXT RESULTS PATIENT: HEAVEN PAZ LOCATION: A 314-01 : [birth year] UNIT #: [id number] AGE: [address]: Chau Higgins MD SEX: M ORDER DR: Visualized upper abdomen is unremarkable. No acute bony abnormality. IMPRESSION 1. Negative for pulmonary emboli. 2. Negative for thoracic aortic aneurysm/dissection. 3. Mild prominence of the main pulmonary arteries which may suggest underlying pulmonary arterial hypertension. 4. Mild cardiomegaly. 5. Multiple prominent mediastinal lymph nodes, nonspecific. These do not appear significantly changed from 2006 and may be reactive. 6. Small bilateral pleural effusions with mild generalized ground-glass opacity throughout both lungs and interlobular septal thickening. Findings suggest pulmonary edema with early congestive failure. Correlate with clinical symptoms. 7. Mild patchy pulmonary infiltrates in the left upper lobe and left lower lobe. Superimposed pneumonia is not excluded. 8. Emphysema. Dictated by... Chris Kaminski M.D. THIS IS AN ELECTRONICALLY VERIFIED REPORT Chris Kaminski M.D. at 01/30/2017 10:41 AM MIGDALIA/nando TD: 01/30/2017 09:59 JOB #: [id number] MEDICAL IMAGING REPORT Page 1 of 1 COPY
--- NOTE | ~2017-01-25 | CT2 ---
[facility] A Service of [facility] RADIOLOGY TEXT RESULTS PATIENT: HEAVEN PAZ LOCATION: [facility] 314-01 : 58 UNIT #: [id number] AGE: [address]: Chau Higgins MD SEX: M ORDER DR: [id number] [facility] [address] [facility]. [place], [place] [address] [id number] I MR#: [id number] Acc #: [id number] NAME: HEAVEN PAZ : 1960 SEX: M STUDY DATE/TIME: 01/31/2017 10:18 UNIT: [facility] ROOM: [facility] STUDY DESCRIPTION: CT Abd and Pelv W Cont Attending Physician: Chau Higgins M.D. Ordering Physician: Baudilio Rose M.D. Primary Care Physician: Toni Madison M.D. MEDICAL IMAGING REPORT This report is preliminary unless electronic signature is present EXAM CT abdomen and pelvis with contrast, 01/31/2017, 1018 hours. CLINICAL HISTORY 56-year-old man complaining of left-sided abdominal pain with nausea, and vomiting since 01/25/2017. History of prostate cancer, small bowel obstruction with prior colostomy. COMPARISON 01/26/[address] images were obtained from the lung bases through the pubic symphysis with oral and intravenous contrast. Sagittal and coronal reconstructions were performed. Contrast was Isovue-370 100 mL IV. Total exam DLP 1063 mGy-cm. This CT exam was performed with one or more of the following radiation dose reduction techniques: automatic exposure control, adjustment of mA and/or kV according to patient size, and iterative reconstruction. FINDINGS Images through the lung bases demonstrate new dependent bilateral small pleural effusions with adjacent parenchymal dependent lung changes most consistent with atelectasis. These findings are new from 01/26/2017. Cardiac chambers, pericardium and esophagus are normal. Images through the abdomen with contrast demonstrate a normal appearance to the liver, spleen, pancreas and bile ducts. There are clips consistent with prior cholecystectomy. The adrenal glands are normal. Kidneys enhance normally with no mass, stone or distension. There is a cyst in the posterior lower pole right kidney unchanged. There is atherosclerotic change of the abdominal aorta which is normal in caliber. [facility]. [facility] A Service of [facility] RADIOLOGY TEXT RESULTS PATIENT: HEAVEN PAZ LOCATION: [facility] 314-01 : [birth year] UNIT #: [id number] AGE: [address]: Chau Higgins MD SEX: M ORDER DR: There is no adenopathy or ascites. The stomach contains food debris and contrast. No gastric wall thickening is seen. The small bowel is moderately well opacified with contrast. There is no small bowel distension or small bowel wall thickening. The terminal ileum and cecum are normal. There is no evidence of appendicitis. The colon demonstrates an area of anastomoses at the left lower quadrant which is stable in appearance. No obstruction is seen. The rectosigmoid colon is decompressed. CT pelvis demonstrates stable enlargement of the prostate. There is postop change left inguinal hernia repair. IMPRESSION 1. There are new small dependent bilateral pleural effusions with adjacent parenchymal changes consistent with atelectasis. These findings are new from CT abdomen 01/26/2017. 2. No acute findings elsewhere in the abdomen or pelvis. 3. Area of colonic anastomoses in the left lower quadrant is normal in appearance. No obstruction is seen. There is no adenopathy or ascites. Dictated by... Smiley Tai M.D. THIS IS AN ELECTRONICALLY VERIFIED REPORT Smiley Tai M.D. at 01/31/2017 5:27 PM [place] TD: 01/31/2017 15:12 JOB #: [id number] MEDICAL IMAGING REPORT Page 1 of 1 COPY
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
--- NOTE | ~2017-01-25 | CO ---
Unit #: [id number] #: [id number] Patient: HEAVEN PAZ L [id number] [facility]. [place], [place] [address] [id number] I MR#: [id number] NAME: HEAVEN PAZ ROOM: 314 Age: 56 Sex: M Admission Date: 01/26/2017 : 1960 Attending Physician: Chau Higgins M.D. Primary Care Physician: Toni Madison M.D. Consultation Date: 01/29/2017 CONSULTATION REPORT REASON FOR CONSULTATION Anxiety, depression, and history of alcohol abuse. HISTORY OF PRESENT ILLNESS Mr. Kumar is a 56-year-old white male, seen in CCU-2, bed 7 on 01/29/2017 at [facility]. The patient moderately obese, dressed casually in hospital attire, lying in a propped up position, receiving oxygen through nasal cannula, seems somewhat anxious and nervous. The patient reported having problem with the anxiety, trouble sleeping in pain. The patient's vital signs; pulse 68, respirations 26, blood pressure 114/70, and oxygen saturation 92%. The patient admitted using occasional use of alcohol. Denied any use of any drugs. The patient reports that he has a good support system from family. PAST PSYCHIATRIC HISTORY Unknown for any history of any previous treatment for depression, anxiety, or alcohol abuse. MEDICAL HISTORY History of abdominal pain, fever, alcohol abuse, history of valvular heart disease status post mechanical valve on anticoagulation Coumadin toxicity, history of COPD, CVA, seizure disorder, dyslipidemia. MEDICATION HISTORY The patient is on aspirin, Lipitor, fenofibrate, [place], MAGnesium-Oxide, Protonix, K-Dur, Diovan, vitamin D2, warfarin, MiraLax. ALLERGIES Keppra. FAMILY HISTORY AND SOCIAL HISTORY The patient has a good support system from family. No history of any abuse, but history of alcohol abuse. The patient is a daily drinker, details unknown at this time. REVIEW OF SYSTEMS Complete review of system is unremarkable except as mentioned above. MENTAL STATUS EXAMINATION Vital signs; please see above. General appearance; the patient moderately obese, dressed casually in hospital attire, receiving oxygen through nasal cannula, seemed very anxious and nervous. Speech, rapid in rate. Oriented in time, place, and person. Mood and affect, labile. Thought process, coherent. Thought content, the patient denied any thoughts of Unit #: [id number] #: [id number] Patient: HEAVEN PAZ harming self or others, but reported severe anxiety. Denied any hallucination. Recent and remote memory, fair. Language, intact. Fund of knowledge, fair. Insight and judgment, fair to poor. DIAGNOSES Psychiatric: Major depressive disorder, recurrent, severe, F33.2; alcohol use disorder, severe, F10.20. Secondary diagnosis: Deferred. Medical diagnosis: Please refer to H and P. Stressors: Psychosocial stressor. ASSESSMENT/PLAN 1. Supportive psychotherapy and psychoeducation provided to the patient. 2. Educated about benefits and side effects of medication and course and prognosis of illness. 3. I agreed at this time to continue with CIWA protocol. The patient is on CIWA protocol and receiving Ativan, but has severe anxiety, possibly exacerbated by Solu-Medrol which he is receiving, therefore, recommending to add Vistaril. To lower the dosage of Ativan, Vistaril 25 mg t.i.d., and Desyrel 50 mg at bedtime for sleep. If needed, we will consider medication such as Zyprexa. Please feel free to call if any questions, telephone #[phone]. Dictated by... Joana Eric/alberta TD: 01/30/2017 10:31 JOB #: [id number] CONSULTATION REPORT Page 1 of 1 X Luis Perez MD X CONSULTATION REPORT
--- NOTE | ~2017-01-25 | CO ---
Unit #: [id number] #: [id number] Patient: JOSÉ PAZ [id number] [address] [place], [place] [address] [id number] I MR#: [id number] NAME: JOSÉ PAZ ROOM: 314 Age: 56 Sex: M Admission Date: 01/26/2017 : 1960 Attending Physician: Chau Higgins M.D. Primary Care Physician: Toni Madison M.D. Consultation Date: 02/01/2017 CONSULTATION REPORT REASON FOR CONSULTATION Followup. DISCUSSION Mr. José Spencer is a 56-year-old white male, seen in room 314 bed 1 on 02/01/2017. The patient dressed in hospital attire, lying comfortably in bed. The patient reports feeling better, decrease in anxiety, sleeping good. Mood is better. The patient diagnosed with major depressive disorder; alcohol use disorder, severe. The patient reports making progress. The patient's was at the bedside. The patient's vital signs; temperature 98.2, pulse 62, respirations 18, blood pressure 158/80, oxygen saturation 94%. REVIEW OF SYSTEMS Complete review of systems unremarkable. MENTAL STATUS EXAMINATION General appearance, the patient dressed in hospital attire, lying comfortably in bed. Pleasant and cooperative. Attention span and concentration fair. Speech, regular rate. Oriented in time, place, and person. Mood and affect were sad, dysphoric, anxious. Thought process, goal directed. The patient denied any thoughts of harming self or others. Recent and remote memory, fair. Language; intact. Fund of knowledge, fair. Insight and judgment, fair to slightly impaired. DIAGNOSES Major depressive disorder, recurrent, severe, F33.2; alcohol use disorder, severe, F10.20. ASSESSMENT AND PLAN 1. Supportive psychotherapy and psychoeducation were provided to the patient. 2. Educated about benefits and side effects of medication and course and prognosis of illness. If needed, consider further adjustment of medication. Please feel free to call if any questions telephone #[phone]. Dictated by... Luis Perez M.D. CHANDANA/alberta TD: 02/02/2017 19:37 Unit #: [id number] #: [id number] Patient: JOSÉ PAZ JOB #: [id number] CONSULTATION REPORT Page 1 of 1 X Luis Perez MD CONSULTATION REPORT
--- NOTE | ~2017-01-25 | CO ---
Unit #: [id number] #: [id number] Patient: HEAVEN PAZ L [id number] [place], [place] [address] [id number] I MR#: [id number] NAME: HEAVEN PAZ ROOM: 314 Age: 56 Sex: M Admission Date: 01/26/2017 : 1960 Attending Physician: Chau Higgins M.D. Primary Care Physician: Toni Madison M.D. Consultation Date: 02/05/2017 CONSULTATION REPORT DISCUSSION Mr. Kumar is a 56-year-old male seen in room 314, bed 1 on 02/05/2017 at [facility]. Patient is compliant with medication. Reports making progress but still feeling sad, depressed, anxious. Patient dressed casually, lying comfortably in bed. Patient was receiving IV fluids. Patient denied any suicidal or homicidal ideation. Denied any psychotic symptoms, sleeping good, no side effects from medication. Patient's vital signs 98.4, 54, 16, 112/51, oxygen saturation 95%. REVIEW OF SYSTEMS Complete review of systems is unremarkable. MENTAL STATUS EXAMINATION General appearance: Patient dressed casually in hospital attire, lying comfortably in bed. Attention span and concentration fair. Speech regular rate, coherent. Oriented in time, place, and person. Mood and affect sad, dysphoric, anxious. Thought process coherent. Thought content: Patient denied any thoughts of harming self or others. Recent and remote memory fair. Language intact. Fund of knowledge fair. Insight and judgment fair to slightly impaired. DIAGNOSES PSYCHIATRIC: Major depressive disorder, recurrent, severe, F33.2. Alcohol use disorder, severe, F10.20. ASSESSMENT AND PLAN 1. Supportive psychotherapy and psychoeducation provided to patient. 2. Educated about benefits and side effects of medication and course and prognosis of illness. 3. Advised to continue with current combination of medication: Vistaril, Desyrel. If needed, consider further adjustment. Please feel free to call if any questions, . Dictated by... Luis Perez M.D. HCANDANA/jez TD: 02/07/2017 10:46 JOB #: [id number] Unit #: [id number] #: [id number] Patient: HEAVEN PAZ CONSULTATION REPORT Page 1 of 1 X Luis Perez MD CONSULTATION REPORT
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
--- NOTE | ~2017-01-25 | CO ---
Unit #: [id number] #: [id number] Patient: HEAVEN PAZ [id number] [place], [place] [address] [id number] I MR#: [id number] NAME: HEAVEN PAZ. ROOM: 461 Age: 56 Sex: M Admission Date: 01/26/2017 : 1960 Attending Physician: Chau Higgins M.D. Primary Care Physician: Toni Madison M.D. Consultation Date: 01/26/2017 CONSULTATION REPORT CHIEF COMPLAINT Abdominal pain. HISTORY OF PRESENT ILLNESS This is a 56-year-old gentleman who has multiple medical problems. He developed some acute abdominal pain approximately 48 hours ago. He states that the pain has been fairly constant and he rates it as a 9 out of 10. It has been associated with nausea and he reports that his last bowel movement was two weeks ago. He has had similar episodes of abdominal pain in the past prior to having valve surgeries. PAST MEDICAL HISTORY Significant for: 1. History of prostate cancer. 2. COPD. 3. Diverticulitis. 4. Hypertension. 5. Coronary artery disease. 6. He has had a recent colonoscopy on January 11 that showed large internal hemorrhoids. 7. He also had an intact sigmoid anastomosis. PAST SURGICAL HISTORY He has an extensive past surgical history where he stated that he has had nine separate exploratory laparotomies for various reasons. These included history of colostomy with colostomy takedown. He has also undergone left inguinal hernia repair as well as aortic valve replacement. He has also had 14 right hand surgeries. MEDICATIONS Please see Med Rec list. He does take Coumadin. ALLERGIES He has allergies to levetiracetam. SOCIAL HISTORY He does smoke and he does drink alcohol. FAMILY HISTORY Noncontributory. REVIEW OF SYSTEMS Limited because he was somnolent due to recent pain medication. Unit #: [id number] #: [id number] Patient: HEAVEN PAZ PHYSICAL EXAMINATION VITAL SIGNS: Temperature is 99.6, heart rate is 91, blood pressure is 115/62. He is in no acute distress. HEENT EXAM: Pupils are equal, reactive to light and accommodation. His extraocular muscles are intact. NECK: Without masses or bruits. LUNGS: Show some scattered wheezing bilaterally but otherwise equal air exchange. CARDIAC EXAM: Regular rate and rhythm. ABDOMEN: He has multiple scars. It is distended, tympanic and there is no peritoneal signs but there is some mild to moderate diffuse tenderness. EXTREMITIES: Without edema or cyanosis. NEUROLOGIC EXAM: He is alert and oriented. There are no focal deficits. DIAGNOSTIC STUDIES LABORATORY: INR is 4.0, white blood count is 22,000, hemoglobin 13. IMAGING: CT scan showed no acute disease although that was preliminary read. I am not seeing the final report. OVERALL IMPRESSION This is a gentleman who clinically looks like he has a partial small bowel obstruction. I am going to try an NG-tube, hold his Coumadin and repeat some interval plain films later today. Will also repeat a CBC in the morning. He has been started on antibiotics. Dictated by... Spenser Ambrocio III, M.D. VCL/deepa TD: 01/26/2017 12:00 JOB #: [id number] CONSULTATION REPORT Page 1 of 1 X Spenser Ambrocio III, MD CONSULTATION REPORT
--- NOTE | ~2017-01-25 | CR72 ---
[facility] A Service of [facility] & [facility] RADIOLOGY TEXT RESULTS PATIENT: HEAVEN PAZ LOCATION: [address] : [birth year] UNIT #: [id number] AGE: [address]: Chau Higgins MD SEX: M ORDER DR: [id number] [facility] [address] [facility] [place], [place] [address] [id number] I MR#: [id number] Acc #: [id number] NAME: HEAVEN PAZ. : 1960 SEX: M STUDY DATE/TIME: 01/29/2017 3:50 UNIT: [facility] ROOM: [facility] STUDY DESCRIPTION: CR Chest Single View Portable Attending Physician: Chau Higgins M.D. Ordering Physician: Paco Valle M.D. Primary Care Physician: Toni Madison M.D. MEDICAL IMAGING REPORT This report is preliminary unless electronic signature is present EXAM Portable chest. HISTORY Fever and shortness of air for 3 days. FINDINGS Mild cardiac enlargement is stable compared to yesterday. Pulmonary vascularity is within normal limits. Sternotomy and cardiac valve replacement. No airspace infiltrates or effusions are identified. Right IJ central line tip is in the superior margin of the right atrium 1 cm beyond the junction of the SVC and right atrium. NG tube extends to at least the EG junction. IMPRESSION No significant change compared to yesterday. Stable cardiac enlargement. Dictated by... Miguel Muniz M.D. THIS IS AN ELECTRONICALLY VERIFIED REPORT Miguel Muniz M.D. at 01/30/2017 4:51 AM BRINA/keshia TD: 01/30/2017 00:19 JOB #: [id number] MEDICAL IMAGING REPORT Page 1 of 1 COPY
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
--- NOTE | ~2017-01-25 | DS ---
Unit #: [id number] #: [id number] Patient: HEAVEN LOVE L [id number] [address] [place], [place] [address] [id number] I MR#: [id number] NAME: HEAVEN LOVE ROOM: 314 Age: 56 Sex: M Admission Date: 01/26/2017 : 1960 Discharge Date: 02/07/2017 Attending Physician: Chau Higgins M.D. Primary Care Physician: Toni Madison M.D. DISCHARGE SUMMARY CONSULTATIONS DURING HOSPITALIZATION 1. Dr. Martinez, infectious disease. 2. Dr. Fatima from cardiology services. 3. Dr. Robles from renal services. 4. Dr. Cardona from pulmonary services. 5. Dr. Luis Perez from psych services. DIAGNOSTIC STUDIES LABORATORY: Workup on discharge: BMP showed sodium 138, potassium 4.3, chloride 103, BUN 19, creatinine 1, magnesium 2.2. CBC shows WBC 15.7, hemoglobin 10.9, hematocrit 32.5, and platelet count of 384. Glucose is 101. Magnesium 2. C. diff. during hospitalization was no growth. Blood culture on 01/27/2017 showed ESBL production confirmed E. coli. Repeat blood culture on 02/02 is no growth. Urine culture was negative. IMAGING: Significant imaging studies done during hospitalization were: CT scan of the abdomen and pelvis, which showed small dependent bilateral pleural effusion. No acute finding elsewhere in the abdomen and pelvis. Colonic anastomosis is stable in the left lower quadrant. CT of the chest was done on 01/29, which showed negative for pulmonary embolism, negative for thoracic aortic aneurysm, mild cardiomegaly, mild multiple prominent mediastinal lymph nodes, nonspecific. Does not appear to significantly change from 2006. PROCEDURE PERFORMED DURING HOSPITALIZATION GEO, which showed no vegetation. DISCHARGE DIAGNOSES 1. Escherichia coli bacteremia. 2. Transesophageal echocardiogram negative. 3. Mechanical aortic valve. 4. Left ventricular ejection fraction of 55%. 5. Normal coronaries. 6. Bradycardia. 7. Chronic obstructive pulmonary disease. 8. Obstructive sleep apnea. 9. Significant aortic atheroma. 10. Anticoagulation therapy for above. 11. History of alcohol abuse. 12. History of cerebrovascular accident. 13. History of seizure disorder. 14. Hyperlipidemia. 15. Tobacco abuse. Unit #: [id number] #: [id number] Patient: HEAVEN LOVE DISCHARGE MEDICATIONS 1. IV meropenem 500 mg q.6 hourly until 02/15/[address] Martinez. 2. Lovenox 90 mg subcu. b.i.d. until INR is above 2. 3. Potassium 20 mEq every day. 4. Protonix 40 mg b.i.d. 5. Lortab continue home dose. 6. Aspirin 81 mg every day. 7. Multivitamin every day. 8. Diovan 160 mg p.o. twice a day. 9. Fenofibrate 145 mg every day. 10. Furosemide 20 mg every day. 11. MiraLAX 17 g b.i.d. 12. Norvasc 5 mg every day. 13. Vistaril 25 mg 3 times a day p.r.n. 14. Atorvastatin 80 mg every day. 15. Warfarin 7.5 mg p.o. every day. 16. Tylenol 650 q.6 p.r.n. 17. Mag oxide 800 mg every day. HOSPITAL COURSE Mr. Love is 56-year-old male who was admitted to the hospital by my colleague, Dr. Higgins, with abdominal pain and fever. Patient was admitted to telemetry unit. Eventually found to have E. coli bacteremia. Dr. Avina was consulted and multiple workup was done. GEO was performed by Dr. Fatima, which was negative for any vegetation. Patient has been advised to continue antibiotics until 02/15/2017. CT scan of abdomen was done twice during this hospitalization because of patient's pain and it has been negative so far. Patient's leukocytosis is improving slowly. Patient was admitted in ICU (1) because of the sepsis. Dr. Cardona was consulted during that hospitalization. Patient is doing well from pulmonary point of view. Patient did have Coumadin toxicity in beginning of the stay, which has improved. Patient was also consulted by Dr. Luis Perez from psych services. Supportive psychotherapy and psychoeducation has been provided. Medication has been continued. Patient was on CIWA protocol during beginning of the stay. Patient has been started on Desyrel at bedtime for sleeping and (2) on as-needed basis. Patient is doing well. He is being discharged home to continue medications at home. He needs to complete the antibiotic pill, 02/15/2017. PHYSICAL EXAMINATION VITAL SIGNS ON DISCHARGE: Blood pressure is 108/62, respiratory rate 16, pulse is 62, temperature 98.6, oxygen saturation is 100%. CHEST: Fair air entry. Decreased at the bases. CVS: S1 and S2 positive. Regular rhythm. EXTREMITIES: Negative edema. DISCHARGE INSTRUCTIONS 1. Patient is being discharged home in stable condition. 2. [facility] to follow the patient at home. 3. Continue IV antibiotic at home. 4. PT/INR to be done in 1-2 days. 5. Discontinue Lovenox once INR is 2. 6. Follow up with primary care provider in one week. 7. Plan of care has been discussed with patient at length. 8. Alcohol cessation counseling done. Unit #: [id number] #: [id number] Patient: HEAVEN LOVE Dictated by... Joana Sierra/shari TD: 02/07/2017 13:50 JOB #: [id number] DISCHARGE SUMMARY Page 1 of 1 X Bernie Garcia MD X DISCHARGE SUMMARY
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
--- NOTE | ~2017-01-25 | CO ---
Unit #: [id number] #: [id number] Patient: JOSÉ LOVE [id number] [address] [place], [place] [address] [id number] I MR#: [id number] NAME: JOSÉ LOVE ROOM: 314 Age: 56 Sex: M Admission Date: 01/26/2017 : 1960 Attending Physician: Chau Higgins M.D. Primary Care Physician: Toni Madison M.D. CONSULTATION REPORT REASON FOR CONSULTATION Followup. DISCUSSION Mr. José Love is a 56-year-old male, seen in room 314, bed 1 on 02/03/2017. The patient reports making progress, decrease in anxiety and depression. Denied any thoughts of harming self or others. Making progress. The patient's vital signs; temperature 97.7, pulse 50, respirations 16, blood pressure 114/63, and oxygen saturation 94%. The patient reports making progress. Dressed casually, lying comfortably in bed, able to answer questions coherently. REVIEW OF SYSTEMS Complete review of system is unremarkable except as mentioned above. MENTAL STATUS EXAMINATION General appearance; the patient dressed casually, lying comfortably in bed. Attention span and concentration, fair. Oriented in time, place, and person. Mood and affect, sad and dysphoric. Speech, regular rate. Thought process, goal directed. The patient denied any thoughts of harming self or others. Recent and remote memory, fair. Language, intact. Fund of knowledge, fair. Insight and judgment, fair to slightly impaired. DIAGNOSES Psychiatric: Major depressive disorder, recurrent, severe, F33.2; alcohol use disorder, severe, F10.20. ASSESSMENT/PLAN 1. Supportive psychotherapy and psychoeducation provided to the patient. 2. Educated about benefits and side effects of medication and course and prognosis of illness. 3. Continue with detox protocol and monitoring. If needed, consider further adjustment of medication. Please feel free to call if any questions, telephone #[phone]. The patient is currently on Vistaril for anxiety and Desyrel for sleep. Dictated by... Luis Perez M.D. CHANDANA/alberta TD: 02/03/2017 17:38 Unit #: [id number] #: [id number] Patient: JOSÉ LOVE JOB #: [id number] CONSULTATION REPORT Page 1 of 1 X Luis Perez MD CONSULTATION REPORT
--- NOTE | ~2017-01-25 | CO ---
Unit #: [id number] #: [id number] Patient: JOSÉ LOVE [id number] [facility] [address] [facility] [place] [facility]. [place], [place] [address] [id number] I MR#: [id number] NAME: JOSÉ LOVE ROOM: 314 Age: 56 Sex: M Admission Date: 01/26/2017 : 1960 Attending Physician: Chau Higgins M.D. Primary Care Physician: Toni Madison M.D. Consultation Date: 01/31/2017 CONSULTATION REPORT REASON FOR CONSULTATION Followup. DISCUSSION Mr. José Love is a 56-year-old male, seen on 01/31/2017 in room 314, bed 1, at [facility]. The patient seemed somewhat anxious, nervous, reports feeling better. The patient was diagnosed with major depressive disorder, history of alcohol abuse, and alcohol withdrawal. The patient denied any thoughts of harming self or others. Denied any psychotic symptom. Reports anxiety and depression are better. Vital signs; temperature 98.3, pulse 63, respirations 20, blood pressure 153/70, oxygen saturation 95%. REVIEW OF SYSTEMS Complete review of systems unremarkable. MENTAL STATUS EXAMINATION General appearance; the patient dressed in hospital attire, receiving IV fluids. Attention span and concentration, fair. Speech, regular rate. Oriented in place and person. Mood and affect, labile, anxious, nervous. Thought process, coherent. Thought content, the patient denied any thoughts of harming self or others or any psychotic symptoms. Recent and remote memory, fair. Language, intact. Fund of knowledge, fair. Insight and judgment, fair to slightly impaired. DIAGNOSES Psychiatric: Major depressive disorder, recurrent, severe, F33.2; alcohol use disorder, severe, F10.20. ASSESSMENT/PLAN 1. Supportive psychotherapy and psychoeducation were provided to the patient. 2. Educated about benefits and side effects of medication and course and prognosis of illness. 3. Advised to continue with current medication and therapeutic protocol. If needed, consider further adjustment of medication. Dictated by... Joana Eric/alberta TD: 02/01/2017 03:01 Unit #: [id number] #: [id number] Patient: JOSÉ LOVE JOB #: [id number] CONSULTATION REPORT Page 1 of 1 X Luis Perez MD CONSULTATION REPORT
[~2017-01-25 22:44] MED LIST changes: +AMLODIPINE BESY10 MG PO; +ASPIRIN ENTERI325 M1 PO; +ATORVASTATIN CA80 MG PO; +DIOVAN320 MG PO; +FENOFIBRATE145 M1 PO; +LORCET PLUS 7.1 EACH PO; +LOVENOX80 MG/0.8 INJ; +MAG-OX 400400 M1 PO; +VITAMIN D250000 UNIT PO; +WARFARIN SODIU7.5 M1 PO; +WELLBUTRIN SR150 M1 PO; +ZYLOPRIM100 MG PO; +ZYRTEC10 M2 PO
[2017-01-26 00:08] LABS: BASOPHIL# 0.1 X10e3 (0-0.3); BASOPHIL% 0.4 % (0-2.5); EOSINOPHIL% 0.2 % (0.0-7.0); HEMOGLOBIN 13.1 gm/dL (13.0-16.0); LYMPHOCYTE# 1.2 X10e3 (1.0-3.5); LYMPHOCYTE% 5.2 % (17.0-45.0); MEAN CELL VOLUME 89.8 FL (83-96); MEAN CORPUSCULAR HEMOGLOBIN 30.2 PG (28-34); MEAN CORPUSCULAR HGB CONC 33.6 g/dL (30-36); MEAN PLATELET VOLUME 7.3 FL (6.5-11.5); MONOCYTE# 1.5 X10e3 (0-1.0); MONOCYTE% 6.3 % (3.0-12.0); NEUTROPHIL# 20.4 X10e3 (1.5-7.1); NEUTROPHIL% 87.9 % (40-75); PLATELET COUNT 309 X10e3 (140-420); RED BLOOD COUNT 4.34 X10e (3.90-5.60); RED CELL DISTRIBUTION WIDTH 14.2 % (11.0-15.5); WHITE BLOOD COUNT 23.2 X10e3 (4.0-10.5)
[2017-01-26 00:10] LABS: DIFF IND NO
[2017-01-26 00:14] LABS: PROTHROMBIN TIME (PATIENT) 46.2 SECONDS (9.5-12.4)
[2017-01-26 00:21] LABS: PARTIAL THROMBOPLASTIN TIME 41.9 SECONDS (25.6-38.1)
[2017-01-26 00:25] LABS: BILIRUBIN,TOTAL 0.9 mg/dL (0.2-2.0); CALCIUM SERUM 8.1 mg/dL (8.4-10.2); GLOM FILT RATE Estimated 83.2 mL/min (>60); POTASSIUM 3.6 mmol/L (3.5-5.1); PROTEIN TOTAL SERUM 6.8 g/dL (6.0-8.3)
[2017-01-26 00:26] LABS: POC - MYOGLOBIN 75.2 ng/mL (0.0-169.0); POC - TROPONIN <0.05 ng/mL (<=0.05)
[2017-01-26 00:49] LABS: URINE SOURCE CLEAN CATCH
[2017-01-26 00:55] LABS: MICRO INDICATED? YES; URINE APPEARANCE CLEAR; URINE BILIRUBIN NEG (NEG); URINE BLOOD 2+ (NEG); URINE COLOR YELLOW; URINE GLUCOSE NEG (NORM); URINE KETONE NEG (NEG); URINE LEUKOCYTE ESTERASE TRACE (NEG); URINE NITRATE NEG (NEG); URINE PROTEIN NEG (NEG); URINE SPECIFIC GRAVITY <=1.005 (1.003-1.035); URINE UROBILINOGEN 0.2 MG/DL (NORM)
[2017-01-26 00:58] LABS: CULTURE INDICATED? NO; URINE BACTERIA NEG (NEG); URINE SQUAMOUS EPITHELIAL CELL FEW /[HPF]; URINE WBC 0-2 /[HPF] (0-5)
[2017-01-26] MEDS ORDERED: LORTAB 7.5-3251 EACH PO (04:07)
[2017-01-26 14:55] LABS: BASOPHIL# 0.2 X10e3 (0-0.3); BASOPHIL% 0.4 % (0-2.5); HEMATOCRIT 36.2 % (38.0-50.0); HEMOGLOBIN 12.1 gm/dL (13.0-16.0); LYMPHOCYTE# 1.1 X10e3 (1.0-3.5); LYMPHOCYTE% 2.7 % (17.0-45.0); MEAN CELL VOLUME 90.5 FL (83-96); MEAN CORPUSCULAR HEMOGLOBIN 30.3 PG (28-34); MEAN CORPUSCULAR HGB CONC 33.5 g/dL (30-36); MEAN PLATELET VOLUME 7.2 FL (6.5-11.5); MONOCYTE# 2.3 X10e3 (0-1.0); MONOCYTE% 5.8 % (3.0-12.0); NEUTROPHIL% 91.1 % (40-75); PLATELET COUNT 277 X10e3 (140-420); RED CELL DISTRIBUTION WIDTH 14.3 % (11.0-15.5)
[2017-01-26 14:56] LABS: DIFF IND YES; WHITE BLOOD COUNT 39.5 X10e3 (4.0-10.5)
[2017-01-26 15:44] LABS: ANISOCYTOSIS SL; PLATELET ESTIMATE NORMAL (NORMAL)
[2017-01-26 20:09] LABS: THYROID STIMULATING HORMONE 0.71 uIU/ml (0.34-5.60)
[2017-01-26 20:16] LABS: FREE THYROXIN (T4) 0.87 ng/dL (0.58-1.64)
[2017-01-26 20:28] LABS: ALBUMIN SERUM 3.3 g/dL (3.5-5.0); BILIRUBIN,TOTAL 1.5 mg/dL (0.2-2.0); BUN/CREATININE RATIO 12.3; CALCIUM SERUM 8.1 mg/dL (8.4-10.2); CREATININE SERUM 1.3 mg/dL (0.6-1.4); GLOM FILT RATE Estimated 60.6 mL/min (>60); POTASSIUM 4.3 mmol/L (3.5-5.1); PROTEIN TOTAL SERUM 6.3 g/dL (6.0-8.3)
[2017-01-27 02:23] LABS: URINE SOURCE CLEAN CATCH
[2017-01-27 02:51] LABS: URINE APPEARANCE CLEAR; URINE BLOOD TRACE (NEG); URINE COLOR DK YELLOW; URINE GLUCOSE NEG (NEG); URINE KETONE NEG (NEG); URINE LEUKOCYTE ESTERASE TRACE (NEG); URINE NITRATE NEG (NEG); URINE PROTEIN TRACE (NEG); URINE SPECIFIC GRAVITY 1.028 (1.003-1.035)
[2017-01-27 02:54] LABS: URINE BACTERIA AUWI NEG (NEGATIVE); URINE SQUAMOUS EPITHELIAL CELL NONE SEEN /[HPF]
[2017-01-27 02:58] LABS: CREATININE,RANDOM URINE 278 mg/dL; SODIUM URINE RANDOM 11 mmol/L
[2017-01-27 03:01] LABS: AMPHETAMINE NEG (NEG); BARBITURATES NEG (NEG); BENZODIAZEPINES POS (NEG); COCAINE NEG (NEG); MARIJUANA NEG (NEG); OPIATES POS (NEG); TRICYCLIC ANTIDEPRESSANTS NEG (NEG); U METHADONE NEG (NEG)
[2017-01-27 03:04] LABS: URINE BILIRUBIN NEG (NEG)
[2017-01-27 03:47] LABS: OSMOLALITY,URINE 613 mOsmo/kg (250-900)
[2017-01-27 06:49] LABS: BASOPHIL% 0.1 % (0-2.5); EOSINOPHIL# 0.1 X10e3 (0-0.7); EOSINOPHIL% 0.2 % (0.0-7.0); HEMATOCRIT 32.8 % (38.0-50.0); LYMPHOCYTE# 1.2 X10e3 (1.0-3.5); LYMPHOCYTE% 3.6 % (17.0-45.0); MEAN CORPUSCULAR HEMOGLOBIN 30.4 PG (28-34); MEAN CORPUSCULAR HGB CONC 33.4 g/dL (30-36); MEAN PLATELET VOLUME 7.7 FL (6.5-11.5); MONOCYTE# 1.4 X10e3 (0-1.0); MONOCYTE% 4.2 % (3.0-12.0); NEUTROPHIL# 31.4 X10e3 (1.5-7.1); NEUTROPHIL% 91.9 % (40-75); PLATELET COUNT 254 X10e3 (140-420); RED BLOOD COUNT 3.61 X10e (3.90-5.60); RED CELL DISTRIBUTION WIDTH 14.6 % (11.0-15.5); WHITE BLOOD COUNT 34.2 X10e3 (4.0-10.5)
[2017-01-27 06:50] LABS: DIFF IND NO
[2017-01-27 07:13] LABS: BUN/CREATININE RATIO 14.54; CALCIUM SERUM 8.1 mg/dL (8.4-10.2); CREATININE SERUM 1.1 mg/dL (0.6-1.4); GLOM FILT RATE Estimated 74.1 mL/min (>60); POTASSIUM 3.9 mmol/L (3.5-5.1)
[2017-01-27 07:28] LABS: URIC ACID 6.1 mg/dL (2.6-7.2)
[2017-01-27 07:53] LABS: INR 1.6
[2017-01-27 07:54] LABS: PROTHROMBIN TIME (PATIENT) 17.7 SECONDS (10.0-11.7)
[2017-01-27 08:38] LABS: PROCALCITONIN 4.14 NG/ML
[2017-01-27 16:47] LABS: SODIUM URINE RANDOM 141 mmol/L
[2017-01-27 16:51] LABS: HEMATOCRIT 30.5 % (38.0-50.0); HEMOGLOBIN 10.3 gm/dL (13.0-16.0)
[2017-01-27 17:08] LABS: OSMOLALITY,URINE 709 mOsmo/kg (250-900)
[2017-01-27 17:09] LABS: CALCIUM SERUM 7.5 mg/dL (8.4-10.2); GLOM FILT RATE Estimated 83.2 mL/min (>60)
[2017-01-27 22:25] LABS: HEMATOCRIT 30.4 % (38.0-50.0)
[2017-01-28 05:38] LABS: INR 1.2; PARTIAL THROMBOPLASTIN TIME 39.6 SECONDS (23.5-31.3); PROTHROMBIN TIME (PATIENT) 13.2 SECONDS (10.0-11.7)
[2017-01-28 06:04] LABS: ALBUMIN SERUM 2.6 g/dL (3.5-5.0); BILIRUBIN,TOTAL 0.8 mg/dL (0.2-2.0); BUN/CREATININE RATIO 14.44; CALCIUM SERUM 7.9 mg/dL (8.4-10.2); CREATININE SERUM 0.9 mg/dL (0.6-1.4); GLOM FILT RATE Estimated 94.5 mL/min (>60); POTASSIUM 3.7 mmol/L (3.5-5.1); PROTEIN TOTAL SERUM 5.5 g/dL (6.0-8.3)
[2017-01-28 06:07] LABS: BASOPHIL# 0.1 X10e3 (0-0.3); BASOPHIL% 0.4 % (0-2.5); EOSINOPHIL# 0.1 X10e3 (0-0.7); EOSINOPHIL% 0.3 % (0.0-7.0); HEMATOCRIT 29.2 % (38.0-50.0); HEMOGLOBIN 9.8 gm/dL (13.0-16.0); LYMPHOCYTE# 0.7 X10e3 (1.0-3.5); LYMPHOCYTE% 3.7 % (17.0-45.0); MEAN CELL VOLUME 91.1 FL (83-96); MEAN CORPUSCULAR HEMOGLOBIN 30.6 PG (28-34); MEAN CORPUSCULAR HGB CONC 33.6 g/dL (30-36); MONOCYTE# 0.5 X10e3 (0-1.0); MONOCYTE% 2.7 % (3.0-12.0); NEUTROPHIL# 17.3 X10e3 (1.5-7.1); NEUTROPHIL% 92.9 % (40-75); PLATELET COUNT 221 X10e3 (140-420); RED CELL DISTRIBUTION WIDTH 14.3 % (11.0-15.5); WHITE BLOOD COUNT 18.6 X10e3 (4.0-10.5)
[2017-01-28 06:29] LABS: DIFF IND YES
[2017-01-28 06:51] LABS: PLATELET ESTIMATE NORMAL (NORMAL); RBC NORMAL YES; VACUOLIZATION SL
[2017-01-29 03:46] LABS: ARTERIAL BLOOD GAS HCO3 23.7 mmol/L; ARTERIAL BLOOD GAS MET HB 0.7 %sat (0.0-2.0); ARTERIAL BLOOD GAS PCO2 36.5 mmHg (35.0-45.0)
[2017-01-29 03:47] LABS: ARTERIAL BLOOD GAS ALLEN TEST NORMAL; ARTERIAL BLOOD GAS ART SITE RIGHT RADIAL; ARTERIAL BLOOD GAS DELIVERY NASAL CANNULA; ARTERIAL BLOOD GAS PO2 53.3 mmHg (80.0-100); ARTERIAL DRAW? YES
[2017-01-29 05:14] LABS: BASOPHIL% 0.5 % (0-2.5); EOSINOPHIL% 0.1 % (0.0-7.0); HEMATOCRIT 27.3 % (38.0-50.0); HEMOGLOBIN 9.5 gm/dL (13.0-16.0); LYMPHOCYTE% 9.9 % (17.0-45.0); MEAN CELL VOLUME 89.8 FL (83-96); MEAN CORPUSCULAR HEMOGLOBIN 31.3 PG (28-34); MEAN CORPUSCULAR HGB CONC 34.8 g/dL (30-36); MEAN PLATELET VOLUME 7.6 FL (6.5-11.5); MONOCYTE# 0.7 X10e3 (0-1.0); NEUTROPHIL# 8.4 X10e3 (1.5-7.1); NEUTROPHIL% 82.5 % (40-75); PLATELET COUNT 185 X10e3 (140-420); RED BLOOD COUNT 3.04 X10e (3.90-5.60); RED CELL DISTRIBUTION WIDTH 14.1 % (11.0-15.5); WHITE BLOOD COUNT 10.2 X10e3 (4.0-10.5)
[2017-01-29 05:29] LABS: ALBUMIN SERUM 2.6 g/dL (3.5-5.0); BILIRUBIN,TOTAL 0.7 mg/dL (0.2-2.0); BUN/CREATININE RATIO 16.66; CALCIUM SERUM 7.8 mg/dL (8.4-10.2); CREATININE SERUM 0.9 mg/dL (0.6-1.4); GLOM FILT RATE Estimated 94.5 mL/min (>60); MAGNESIUM 1.9 mg/dL (1.6-3.0); POTASSIUM 3.4 mmol/L (3.5-5.1); PROTEIN TOTAL SERUM 5.5 g/dL (6.0-8.3)
[2017-01-29 06:41] LABS: DIFF IND NO
[2017-01-29 08:20] LABS: HEMATOCRIT 27.6 % (38.0-50.0); HEMOGLOBIN 9.4 gm/dL (13.0-16.0); MEAN CELL VOLUME 89.9 FL (83-96); MEAN CORPUSCULAR HEMOGLOBIN 30.8 PG (28-34); MEAN CORPUSCULAR HGB CONC 34.3 g/dL (30-36); MEAN PLATELET VOLUME 7.2 FL (6.5-11.5); RED BLOOD COUNT 3.07 X10e (3.90-5.60); RED CELL DISTRIBUTION WIDTH 14.2 % (11.0-15.5); WHITE BLOOD COUNT 9.9 X10e3 (4.0-10.5)
[2017-01-29 08:37] LABS: INR 1.1; PROTHROMBIN TIME (PATIENT) 12.1 SECONDS (10.0-11.7)
[2017-01-30 03:55] LABS: ARTERIAL BLD GAS O2 SATURATION 96.6 % (90.0-100.0); ARTERIAL BLOOD GAS CARBOXY HB 0.7 %sat (0.0-9.0); ARTERIAL BLOOD GAS HCO3 22.9 mmol/L; ARTERIAL BLOOD GAS MET HB 1.1 %sat (0.0-2.0); ARTERIAL BLOOD GAS PCO2 39.2 mmHg (35.0-45.0); ARTERIAL BLOOD GAS PO2 99.2 mmHg (80.0-100); ARTERIAL BLOOD GAS pH 7.374 (7.350-7.450)
[2017-01-30 04:01] LABS: ARTERIAL BLOOD GAS ALLEN TEST NORMAL; ARTERIAL BLOOD GAS ART SITE LEFT RADIAL; ARTERIAL BLOOD GAS DELIVERY NASAL CANNULA; ARTERIAL DRAW? YES
[2017-01-30 04:45] LABS: HEMATOCRIT 27.4 % (38.0-50.0); HEMOGLOBIN 9.1 gm/dL (13.0-16.0); MEAN CELL VOLUME 90.5 FL (83-96); MEAN CORPUSCULAR HEMOGLOBIN 29.9 PG (28-34); MEAN CORPUSCULAR HGB CONC 33.1 g/dL (30-36); MEAN PLATELET VOLUME 7.9 FL (6.5-11.5); RED BLOOD COUNT 3.03 X10e (3.90-5.60); RED CELL DISTRIBUTION WIDTH 14.2 % (11.0-15.5); WHITE BLOOD COUNT 13.5 X10e3 (4.0-10.5)
[2017-01-30 05:53] LABS: ALBUMIN SERUM 2.7 g/dL (3.5-5.0); BILIRUBIN,TOTAL 0.7 mg/dL (0.2-2.0); CALCIUM SERUM 8.2 mg/dL (8.4-10.2); CREATININE SERUM 0.9 mg/dL (0.6-1.4); GLOM FILT RATE Estimated 94.5 mL/min (>60); MAGNESIUM 2.1 mg/dL (1.6-3.0); POTASSIUM 4.2 mmol/L (3.5-5.1)
[2017-01-31 06:12] LABS: HEMATOCRIT 27.6 % (38.0-50.0); HEMOGLOBIN 9.2 gm/dL (13.0-16.0); MEAN CELL VOLUME 89.4 FL (83-96); MEAN CORPUSCULAR HEMOGLOBIN 29.7 PG (28-34); MEAN CORPUSCULAR HGB CONC 33.2 g/dL (30-36); MEAN PLATELET VOLUME 8.5 FL (6.5-11.5); RED BLOOD COUNT 3.09 X10e (3.90-5.60); RED CELL DISTRIBUTION WIDTH 14.4 % (11.0-15.5)
[2017-01-31 06:16] LABS: WHITE BLOOD COUNT 23.3 X10e3 (4.0-10.5)
[2017-01-31 06:22] LABS: INR 1.5; PARTIAL THROMBOPLASTIN TIME 81.2 SECONDS (23.5-31.3); PROTHROMBIN TIME (PATIENT) 16.1 SECONDS (10.0-11.7)
[2017-01-31 06:55] LABS: ALBUMIN SERUM 2.7 g/dL (3.5-5.0); BILIRUBIN,TOTAL 0.6 mg/dL (0.2-2.0); CALCIUM SERUM 8.5 mg/dL (8.4-10.2); CREATININE SERUM 0.9 mg/dL (0.6-1.4); GLOM FILT RATE Estimated 94.5 mL/min (>60); POTASSIUM 3.7 mmol/L (3.5-5.1); PROTEIN TOTAL SERUM 5.2 g/dL (6.0-8.3)
[2017-02-01 05:54] LABS: HEMATOCRIT 27.8 % (38.0-50.0); HEMOGLOBIN 9.3 gm/dL (13.0-16.0); MEAN CELL VOLUME 89.4 FL (83-96); MEAN CORPUSCULAR HGB CONC 33.6 g/dL (30-36); MEAN PLATELET VOLUME 8.3 FL (6.5-11.5); RED BLOOD COUNT 3.11 X10e (3.90-5.60); RED CELL DISTRIBUTION WIDTH 14.5 % (11.0-15.5); WHITE BLOOD COUNT 27.7 X10e3 (4.0-10.5)
[2017-02-01 06:05] LABS: PROTHROMBIN TIME (PATIENT) 22.2 SECONDS (10.0-11.7)
[2017-02-01 06:09] LABS: PARTIAL THROMBOPLASTIN TIME 103.6 SECONDS (23.5-31.3)
[2017-02-01 06:20] LABS: ALBUMIN SERUM 2.8 g/dL (3.5-5.0); BILIRUBIN,TOTAL 0.5 mg/dL (0.2-2.0); CALCIUM SERUM 8.6 mg/dL (8.4-10.2); GLOM FILT RATE Estimated 83.2 mL/min (>60); MAGNESIUM 1.8 mg/dL (1.6-3.0); POTASSIUM 3.7 mmol/L (3.5-5.1); PROTEIN TOTAL SERUM 5.7 g/dL (6.0-8.3)
[2017-02-01 08:35] LABS: INR 1.9; PARTIAL THROMBOPLASTIN TIME 42.8 SECONDS (23.5-31.3); PROTHROMBIN TIME (PATIENT) 20.7 SECONDS (10.0-11.7)
[2017-02-02 05:39] LABS: HEMATOCRIT 29.7 % (38.0-50.0); HEMOGLOBIN 9.9 gm/dL (13.0-16.0); MEAN CELL VOLUME 89.6 FL (83-96); MEAN CORPUSCULAR HEMOGLOBIN 29.8 PG (28-34); MEAN CORPUSCULAR HGB CONC 33.2 g/dL (30-36); MEAN PLATELET VOLUME 8.4 FL (6.5-11.5); RED BLOOD COUNT 3.31 X10e (3.90-5.60); RED CELL DISTRIBUTION WIDTH 14.6 % (11.0-15.5); WHITE BLOOD COUNT 30.3 X10e3 (4.0-10.5)
[2017-02-02 05:46] LABS: INR 1.8; PROTHROMBIN TIME (PATIENT) 19.4 SECONDS (10.0-11.7)
[2017-02-02 08:22] LABS: BUN/CREATININE RATIO 21.25; CALCIUM SERUM 8.8 mg/dL (8.4-10.2); CREATININE SERUM 0.8 mg/dL (0.6-1.4); GLOM FILT RATE Estimated 99.2 mL/min (>60); MAGNESIUM 2.3 mg/dL (1.6-3.0); POTASSIUM 4.3 mmol/L (3.5-5.1)
[2017-02-03 07:48] LABS: HEMATOCRIT 28.9 % (38.0-50.0); HEMOGLOBIN 9.9 gm/dL (13.0-16.0); MEAN CELL VOLUME 88.1 FL (83-96); MEAN CORPUSCULAR HEMOGLOBIN 30.2 PG (28-34); MEAN CORPUSCULAR HGB CONC 34.3 g/dL (30-36); RED BLOOD COUNT 3.28 X10e (3.90-5.60); RED CELL DISTRIBUTION WIDTH 14.4 % (11.0-15.5); WHITE BLOOD COUNT 26.3 X10e3 (4.0-10.5)
[2017-02-03 08:04] LABS: INR 1.7; PROTHROMBIN TIME (PATIENT) 18.7 SECONDS (10.0-11.7)
[2017-02-04 02:37] LABS: HEMATOCRIT 31.3 % (38.0-50.0); HEMOGLOBIN 10.6 gm/dL (13.0-16.0); MEAN CELL VOLUME 89.2 FL (83-96); MEAN CORPUSCULAR HEMOGLOBIN 30.2 PG (28-34); MEAN CORPUSCULAR HGB CONC 33.9 g/dL (30-36); MEAN PLATELET VOLUME 7.6 FL (6.5-11.5); RED BLOOD COUNT 3.51 X10e (3.90-5.60); RED CELL DISTRIBUTION WIDTH 14.3 % (11.0-15.5); WHITE BLOOD COUNT 22.6 X10e3 (4.0-10.5)
[2017-02-04 02:43] LABS: INR 1.5; PARTIAL THROMBOPLASTIN TIME 68.9 SECONDS (23.5-31.3); PROTHROMBIN TIME (PATIENT) 16.1 SECONDS (10.0-11.7)
[2017-02-04 02:49] LABS: BUN/CREATININE RATIO 23.33; CALCIUM SERUM 8.2 mg/dL (8.4-10.2); CREATININE SERUM 0.9 mg/dL (0.6-1.4); GLOM FILT RATE Estimated 94.5 mL/min (>60)
[2017-02-05 05:39] LABS: INR 1.5; PARTIAL THROMBOPLASTIN TIME 84.4 SECONDS (23.5-31.3); PROTHROMBIN TIME (PATIENT) 16.7 SECONDS (10.0-11.7)
[2017-02-05 05:45] LABS: HEMATOCRIT 30.3 % (38.0-50.0); HEMOGLOBIN 10.4 gm/dL (13.0-16.0); MEAN CELL VOLUME 89.3 FL (83-96); MEAN CORPUSCULAR HEMOGLOBIN 30.6 PG (28-34); MEAN CORPUSCULAR HGB CONC 34.3 g/dL (30-36); MEAN PLATELET VOLUME 7.7 FL (6.5-11.5); RED BLOOD COUNT 3.39 X10e (3.90-5.60); RED CELL DISTRIBUTION WIDTH 14.5 % (11.0-15.5); WHITE BLOOD COUNT 17.8 X10e3 (4.0-10.5)
[2017-02-05 06:55] LABS: CALCIUM SERUM 8.2 mg/dL (8.4-10.2); GLOM FILT RATE Estimated 83.2 mL/min (>60); MAGNESIUM 2.1 mg/dL (1.6-3.0); PHOSPHOROUS 3.2 mg/dL (2.5-4.6); POTASSIUM 3.7 mmol/L (3.5-5.1)
[2017-02-06 04:59] LABS: HEMOGLOBIN 10.7 gm/dL (13.0-16.0); MEAN CELL VOLUME 90.3 FL (83-96); MEAN CORPUSCULAR HEMOGLOBIN 30.2 PG (28-34); MEAN CORPUSCULAR HGB CONC 33.4 g/dL (30-36); MEAN PLATELET VOLUME 7.5 FL (6.5-11.5); RED BLOOD COUNT 3.54 X10e (3.90-5.60); RED CELL DISTRIBUTION WIDTH 15.3 % (11.0-15.5); WHITE BLOOD COUNT 18.7 X10e3 (4.0-10.5)
[2017-02-06 05:26] LABS: INR 1.6; PARTIAL THROMBOPLASTIN TIME 85.8 SECONDS (23.5-31.3); PROTHROMBIN TIME (PATIENT) 17.3 SECONDS (10.0-11.7)
[2017-02-06 05:32] LABS: CALCIUM SERUM 8.5 mg/dL (8.4-10.2); CREATININE SERUM 0.8 mg/dL (0.6-1.4); GLOM FILT RATE Estimated 99.2 mL/min (>60); POTASSIUM 4.3 mmol/L (3.5-5.1)
[2017-02-07 06:29] LABS: HEMATOCRIT 32.5 % (38.0-50.0); HEMOGLOBIN 10.9 gm/dL (13.0-16.0); MEAN CELL VOLUME 90.2 FL (83-96); MEAN CORPUSCULAR HEMOGLOBIN 30.2 PG (28-34); MEAN CORPUSCULAR HGB CONC 33.5 g/dL (30-36); MEAN PLATELET VOLUME 7.8 FL (6.5-11.5); RED BLOOD COUNT 3.61 X10e (3.90-5.60); RED CELL DISTRIBUTION WIDTH 14.9 % (11.0-15.5); WHITE BLOOD COUNT 15.7 X10e3 (4.0-10.5)
[2017-02-07 06:54] LABS: CALCIUM SERUM 8.6 mg/dL (8.4-10.2); GLOM FILT RATE Estimated 83.2 mL/min (>60); MAGNESIUM 2.2 mg/dL (1.6-3.0); POTASSIUM 4.3 mmol/L (3.5-5.1)
[2017-02-07 06:58] LABS: INR 1.7; PARTIAL THROMBOPLASTIN TIME 99.6 SECONDS (23.5-31.3); PROTHROMBIN TIME (PATIENT) 18.2 SECONDS (10.0-11.7)
[2017-02-07] MEDS ORDERED: ASPIRIN81 M2 PO (14:56)
[2017-02-07] MEDS ORDERED: LOVENOX SUBQ (15:12)
[2017-02-07] MEDS ORDERED: MEROPENEM-500 MG/50 IV (15:16)
[2017-02-07] MEDS ORDERED: DESYREL50 MG PO (15:20)
[2017-02-07] MEDS ORDERED: VISTARIL PO (15:22)
[2017-02-07] MEDS ORDERED: LASIX PO (15:22)
[2017-02-07] MEDS ORDERED: NORVASC PO (15:22)
[2017-02-07] MEDS ORDERED: MULTIVITAMINS1 EAC3 PO (15:23)
[2017-02-07] MEDS ORDERED: K-DUR20 ME1 PO (15:24)
[2017-02-07] MEDS ORDERED: MAPAP325 M1 PO (15:25)
== END 2017-02-07 18:27 | disposition home health service (06) | DRG 871 ==
LOC: SED 22:44 → SEDOF 01-26 02:34 → CICCU2 01-26 03:30 → SEDOF 01-26 03:30 → C3A PCU 01-26 03:30 → CICCU2 01-26 03:30 → SED 01-26 03:30 → UNDODEPER 01-26 03:39 → C4C 01-26 03:47 → SEDOF 01-26 03:47 → C5B 01-26 20:18 → C4C 01-26 20:18 → CICCU2 01-27 11:31 → C5B 01-27 11:31 → C3A PCU 01-30 05:50 → CICCU2 01-30 05:50 → C3A PCU 01-30 05:50
PROVIDERS: Hospitalist; Internal Medicine; Internal Medicine Nephrology; Internal Medicine Pulmonary Disease; Nurse Practitioner; Obstetrics & Gynecology; Surgery
PROC: 0D9670Z Drainage of Stomach with Drainage Device, Via Natural or Artificial Opening (ICD-10-PCS; principal; 2017-01-26)
PROC: B214YZZ Fluoroscopy of Right Heart using Other Contrast (ICD-10-PCS; 2017-01-27)
PROC: 02H633Z Insertion of Infusion Device into Right Atrium, Percutaneous Approach (ICD-10-PCS; 2017-01-27)
PROC: B244YZZ Ultrasonography of Right Heart using Other Contrast (ICD-10-PCS; 2017-01-27)
PROC: B32TYZZ Computerized Tomography (CT Scan) of Left Pulmonary Artery using Other Contrast (ICD-10-PCS; 2017-01-29)
PROC: B32SYZZ Computerized Tomography (CT Scan) of Right Pulmonary Artery using Other Contrast (ICD-10-PCS; 2017-01-29)
PROC: B24BZZ4 Ultrasonography of Heart with Aorta, Transesophageal (ICD-10-PCS; 2017-02-02)
PROC: 02HV33Z Insertion of Infusion Device into Superior Vena Cava, Percutaneous Approach (ICD-10-PCS; 2017-02-04)
PROC: 4A02X4A Measurement of Cardiac Electrical Activity, Guidance, External Approach (ICD-10-PCS; 2017-02-04)
DX: A41.51 Sepsis due to Escherichia coli [E. coli] (principal); R65.21 Severe sepsis with septic shock; J96.01 Acute respiratory failure with hypoxia; J69.0 Pneumonitis due to inhalation of food and vomit; K56.60 Unspecified intestinal obstruction; F10.231 Alcohol dependence with withdrawal delirium; F33.2 Major depressive disorder, recurrent severe without psychotic features; E87.1 Hypo-osmolality and hyponatremia; J44.1 Chronic obstructive pulmonary disease with (acute) exacerbation; I07.1 Rheumatic tricuspid insufficiency; Z95.2 Presence of prosthetic heart valve; Z79.01 Long term (current) use of anticoagulants; Z86.73 Personal history of transient ischemic attack (TIA), and cerebral infarction without residual deficits; G40.909 Epilepsy, unspecified, not intractable, without status epilepticus; E78.5 Hyperlipidemia, unspecified; Z72.0 Tobacco use; Z79.82 Long term (current) use of aspirin; Z90.49 Acquired absence of other specified parts of digestive tract; D72.829 Elevated white blood cell count, unspecified; D64.9 Anemia, unspecified; E87.6 Hypokalemia; Z85.46 Personal history of malignant neoplasm of prostate; I10 Essential (primary) hypertension; R00.1 Bradycardia, unspecified; G47.33 Obstructive sleep apnea (adult) (pediatric); I70.0 Atherosclerosis of aorta
CPT/HCPCS: 36415; 36600; 71010; 71275; 74000; 74020; 74177; 76937; 76942; 77001; 80048; 80053; 80307; 81003; 82150; 82274; 82308; 82533; 82550; 82553; 82570; 82803; 82947; 83036; 83605; 83690; 83735; 83874; 83880; 83930; 83935; 84100; 84132; 84300; 84439; 84443; 84484; 84550; 85014; 85018; 85025; 85027; 85610; 85730; 86592; 87040; 87077; 87086; 87186; 87493; 92526; 92610; 93005; 93306; 93312; 94640; 94760; 96361; 96374; 96375; 96376; 99285; C9113; G8996-GN; G8997-GN; J1170; J1642; J1644; J1815; J2060; J2185; J2250; J2270; J2405; J2543; J2930; J3010; J3370; J3411; J3475; J7042; Q9967

== ENCOUNTER → 2017-02-10 | Outpatient (CLI) | payer OTHER ==
[~2017-02-10] MED LIST changes: +ASPIRIN81 M2 PO; +LASIX PO; +LORTAB 7.5-3251 EACH PO; +MAPAP325 M1 PO; +MEROPENEM-500 MG/50 IV; +MULTIVITAMINS1 EAC3 PO; +NORVASC PO; +VISTARIL PO
--- NOTE | ~2017-02-10 | XA166 ---
[facility] A Service of [facility] & [facility] RADIOLOGY TEXT RESULTS PATIENT: HEAVEN PAZ LOCATION: [facility]IV[facility] : 58 UNIT #: [id number] AGE: [address]: Mario Avina MD SEX: M ORDER DR: [id number] [place] [address] [facility]. [place], [place] [address] [id number] O MR#: [id number] Acc #: [id number] NAME: HEAVEN PAZ : 1960 SEX: M STUDY DATE/TIME: 02/10/2017 15:29 UNIT: [facility] ROOM: STUDY DESCRIPTION: XA PICC Line Placement WO Port Attending Physician: Mario Avina M.D. Referring Physician: Mario Avina M.D. Ordering Physician: Mario Avina M.D. Primary Care Physician: Toni Madison M.D. MEDICAL IMAGING REPORT This report is preliminary unless electronic signature is present EXAM PICC placement HISTORY IV antibiotics PRE-PROCEDURE The procedure was explained to the patient and/or patient sales representative rural [employer] including risks, benefits, potential complications and potential for alternative forms of treatment. Informed consent was obtained, and prior to initiating the procedure a formal timeout procedure was performed. PROCEDURE Using full standard sterile barrier technique, including caps, gowns, gloves, masks, as well as sterile skin preparation and standard sterile draping, the right arm was prepped and draped in the usual fashion, and real-time sterile ultrasound guidance was used to localize an arm vein and to confirm vessel patency. A hard copy ultrasound image was recorded. After local anesthesia with 1% Xylocaine, the vein was punctured using real-time sterile ultrasound guidance, and an 0.018 guidewire was advanced into the superior vena cava, using fluoroscopic guidance. A 4-Belizean single-lumen 46-cm PICC was then measured and deployed with the tip positioned in the superior vena cava. The position of the line was documented with a radiographic image. The line was secured in place with an adhesive dressing and an antibiotic patch was applied. Total fluoro time was 0.3 minutes. A single fluoroscopic spot image was obtained. IMPRESSION 1. Successful placement of a 4-Belizean single-lumen 46-cm Power PICC via the right arm under ultrasound and fluoroscopic guidance. The tip of the PICC is in good position in the superior vena cava. 2. A single fluoroscopic spot image was obtained. [facility] A Service of [facility] & [facility] RADIOLOGY TEXT RESULTS PATIENT: HEAVEN PAZ LOCATION: [facility] : 58 UNIT #: [id number] AGE: [address]: Mario Avina MD SEX: M ORDER DR: Dictated by... Eliceo Morris M.D. THIS IS AN ELECTRONICALLY VERIFIED REPORT Eliceo Morris M.D. at 02/15/2017 11:21 AM JOIE/keyla TD: 02/11/2017 09:43 JOB #: [id number] MEDICAL IMAGING REPORT Page 1 of 1 COPY
== END | disposition home or self-care (01) ==
LOC: CIVR 15:00
DX: R78.81 Bacteremia (principal); Z45.2 Encounter for adjustment and management of vascular access device
CPT/HCPCS: 76937; 77001; C1751; J1642